=== PATIENT | female | born 1935 | race Caucasian/White ===

== ENCOUNTER → 2017-02-02 | Outpatient (CLI) | payer MEDICARE, MEDICAID ==
[~2017-02-02] MED LIST: ACULAR LS 5 ML5 ML OP; ALPHAG-P-0.1-15 OU; ALPHAG-P-0.1-5ML; ANORO IH; ANUSOL HC CREAM30 GM TP; ASPIRIN 81M81 MG/TA2 PO; ASPIRIN E.C. 8181 MG PO; B-121000 MCG PO; CEFTIN 250250 MG/TAB PO; COMBIRESP IH; CRANBERRY500 M3 PO; CYMBALTA 30MG30 MG PO; DOXYCYCLINE 10100 MG PO; ENALAPRIL20 MG PO; FLONASEALLERGY NS; HCTZ 25MG25 MG PO; HCTZ12.5TAB PO; HUMULIN 70/30 PE3 ML SC; HUMULIN 70/3100 U/ML SC; HUMULIN 70/3100 U/ML SQ; IMDUR 30MG30 MG/TAB PO; IMDUR30 MG PO; INSULIN 70/3100 U/ML IJ; INSULIN 70/3100 U/ML SQ; LANTUS100 U/ML; LANTUS100 U/ML SC; LASIX 20MG TABL20 MG PO; LEVEMIR100 U/ML SC; LEXAPRO20 MG PO; LISINOPRIL; LOPRESSOR 225 MG/TAB PO; MAGCITRATE PO; METOPROLOL50 MG PO; MULTAQ400 MG PO; NEXIUM PO; NOVOLIN R100 U/ML IJ; OCUFLOX 10 ML10 ML OP; OMEGA-31 SGL PO; OMNICEF 300MG300 MG PO; PAXIL40 MG PO; PERCOCET 325 MG1 TA2 PO; PLAVIX 75MG TAB75 MG PO; POTASSIUM; PRED FORTE 1 ML1 ML OP; PREVACID 30MG30 M1 PO; PREVACID SOLUTA30 M2 PO; PRILOSEC 20MG20 MG PO; PROAIR HFA0.09 MG/AC IH; REMERON 15M15 MG/TA1 PO; REQUIP 1MG T1 MG/TAB PO; SINEMET 25/101 UDTAB PO; TEARS NATURALE15 M1 OP; TOPROL XL 50MG50 MG PO; TYLENOL 500MG500 MG PO; UNABLE; VASOTEC20 MG PO; VICTOZA6 MG/ML SC; ZANTAC 150150 MG PO; ZANTAC 150MG T150 MG PO; [UNRECOGNIZED DRUG - OTHER]
== END ==
LOC: COL.VAS 12:25
DX: I08.0 Rheumatic disorders of both mitral and aortic valves (principal)

== ENCOUNTER 2017-02-22 11:51 | Inpatient (IN) | payer MEDICARE, MEDICAID ==
[~2017-02-22] VITALS: Ht 160 cm; Wt 90.9 kg
[~2017-02-22 11:51] MED LIST changes: -ALPHAG-P-0.1-15 OU; -ANORO IH; -CRANBERRY500 M3 PO; -FLONASEALLERGY NS; -LASIX 20MG TABL20 MG PO; -LEXAPRO20 MG PO; -LOPRESSOR 225 MG/TAB PO; -MULTAQ400 MG PO; -PROAIR HFA0.09 MG/AC IH; -SINEMET 25/101 UDTAB PO
[2017-02-22] MEDS ORDERED: SINEMET 25/101 UDTAB PO (12:21)
[2017-02-22] MEDS ORDERED: PROAIR HFA0.09 MG/AC IH (12:21)
[2017-02-22] MEDS ORDERED: LOPRESSOR 225 MG/TAB PO (12:23)
[2017-02-22] MEDS ORDERED: LEXAPRO20 MG PO (12:26)
[2017-02-22] MEDS ORDERED: ALPHAG-P-0.1-15 OU (12:27)
[2017-02-22] MEDS ORDERED: ANORO IH (12:28)
[2017-02-22] MEDS ORDERED: CRANBERRY500 M3 PO (12:28)
[2017-02-22 12:31] LABS: BASO # 0.1 (0.0-0.2); BASO % 0.7 % (0.0-2.0); EOS # 0.1 (0.0-0.7); EOS % 1.1 % (0-4.0); GRAN # 5.5 (1.4-6.5); GRAN % 68.7 % (42.2-75.2); LYMPH # 1.9 (1.2-3.4); MEAN CELL VOLUME 95 fl (80.0-100.0); MEAN CORPUSCULAR HGB CONC 32 g/dl (33.0-37.0); MEAN PLATELET VOLUME 10.5 fl (7.4-10.4); MONO # 0.5 (0.1-0.6); MONO % 6.1 % (1.7-9.3); PLATELET COUNT 184 K/mm3 (130-400); RED BLOOD COUNT 3.85 M/mm3 (4.10-5.30); REDCELL DISTRIBUTION WIDTH-CV 13.9 % (11.5-14.5); WHITE BLOOD COUNT 8.1 K/mm3 (4.8-10.8)
[2017-02-22 12:32] LABS: HEMATOCRIT 36.5 % (37.0-47.0); HEMOGLOBIN 11.6 g/dl (12.5-16.0); MEAN CORPUSCULAR HEMOGLOBIN 30 pg (27.0-31.0)
[2017-02-22 12:34] LABS: INR 1.2 (0.8-3.0)
[2017-02-22 12:37] LABS: PARTIAL THROMBOPLASTIN TIME 31.4 SECONDS (26.0-37.0)
[2017-02-22 12:45] LABS: ADJUSTED CALCIUM 9.2 mg/dL (8.4-10.2); ALANINE AMINOTRANSFERASE 17 U/L (9-52); ALBUMIN 3.9 gm/dL (3.5-5.0); ALKALINE PHOSPHATASE 103 U/L (50-136); ANION GAP 8 mmol/L (7-16); BLOOD UREA NITROGEN 14 mg/dL (7-17); CALCIUM 9.1 mg/dL (8.4-10.2); CARBON DIOXIDE 29 mmol/L (22-30); CHLORIDE 103 mmol/L (98-107); CREATININE, serum 0.77 mg/dL (0.52-1.25); GLUCOSE 111 mg/dL (74-106); POTASSIUM 3.9 mmol/L (3.4-5.0); SODIUM 140 mmol/L (137-145); TOTAL PROTEIN 7.3 gm/dL (6.4-8.2)
[2017-02-22 12:56] LABS: B-TYPE NATRIURETIC PEPTIDE 1970 pg/mL (0-450)
[2017-02-22 12:58] LABS: TROPONIN-I < 0.012 ng/mL (0.000-0.034)
[2017-02-22 13:40] LABS: PH 7 (5-8); SQUAMOUS EPITHELIAL 0-2 /hpf; URINE APPEARANCE Clear; URINE BACTERIA Rare /hpf; URINE BILIRUBIN Negative (NEGATIVE); URINE BLOOD 1+ (NEGATIVE); URINE COLOR Yellow; URINE GLUCOSE Negative (NEGATIVE); URINE KETONE Negative (NEGATIVE); URINE UROBILINOGEN Negative (NEGATIVE)
[2017-02-22 17:48] LABS: ARTERIAL BLD GAS O2 SATURATION 95.9 % (92-100); ARTERIAL BLD GAS TCO2 CT 28.7; ARTERIAL BLOOD GAS BASE EXCESS 2.7 (-2-2); ARTERIAL BLOOD GAS HCO3 27.4 meq/L (22-26); ARTERIAL BLOOD GAS PHT 7.43 C (7.35-7.45); ARTERIAL BLOOD GAS PO2 85.7 mmHg (80-100); ARTERIAL BLOOD GAS PO2T 85.7 (80-100); ARTERIAL BLOOD GAS pH 7.43 (7.35-7.45); ATS? YES; OXYHEMOGLOBIN 94.2 %
[2017-02-22 18:21] VITALS: BP 141/59; PULSE 69; TEMP 98.7
[2017-02-22 23:30] VITALS: BP 141/74; PULSE 85; TEMP 98.5
[2017-02-23] VITALS (7 sets, daily range): BP systolic 115–152; BP diastolic 38–75; PULSE 55–72; TEMP 97.5–98.9
[2017-02-23 10:12] LABS: CALCIUM 8.9 mg/dL (8.4-10.2); CREATININE, serum 0.81 mg/dL (0.52-1.25); MAGNESIUM 1.8 mg/dL (1.6-2.3); POTASSIUM 3.8 mmol/L (3.4-5.0)
[2017-02-24 07:46] VITALS: BP 165/64; PULSE 74; TEMP 98.3
[2017-02-24 10:00] LABS: BASO # 0.1 (0.0-0.2); BASO % 0.6 % (0.0-2.0); EOS # 0.2 (0.0-0.7); EOS % 2.8 % (0-4.0); GRAN # 5.8 (1.4-6.5); GRAN % 68.5 % (42.2-75.2); HEMOGLOBIN 12.8 g/dl (12.5-16.0); LYMPH # 1.8 (1.2-3.4); LYMPH % 21.6 % (20.0-51.0); MEAN CELL VOLUME 96 fl (80.0-100.0); MEAN CORPUSCULAR HEMOGLOBIN 30 pg (27.0-31.0); MEAN CORPUSCULAR HGB CONC 31 g/dl (33.0-37.0); MEAN PLATELET VOLUME 10.2 fl (7.4-10.4); MONO # 0.5 (0.1-0.6); MONO % 6.3 % (1.7-9.3); PLATELET COUNT 202 K/mm3 (130-400); RED BLOOD COUNT 4.27 M/mm3 (4.10-5.30); WHITE BLOOD COUNT 8.4 K/mm3 (4.8-10.8)
[2017-02-24 10:10] LABS: CALCIUM 9.2 mg/dL (8.4-10.2); CREATININE, serum 0.84 mg/dL (0.52-1.25); MAGNESIUM 1.7 mg/dL (1.6-2.3); POTASSIUM 3.6 mmol/L (3.4-5.0)
[2017-02-24 11:50] VITALS: BP 129/57; PULSE 73; TEMP 98.3
[2017-02-24 15:38] VITALS: BP 113/44; PULSE 71; TEMP 98.3
[2017-02-24 19:11] VITALS: BP 152/57; PULSE 62; TEMP 98.6
[2017-02-24 23:53] VITALS: BP 128/61; PULSE 65; TEMP 97.1
[2017-02-25 02:53] VITALS: BP 139/61; PULSE 85; TEMP 97.1
[2017-02-25 07:39] VITALS: BP 104/60; PULSE 107; TEMP 98.4
[2017-02-25 07:39] LABS: CALCIUM 9.2 mg/dL (8.4-10.2); CREATININE, serum 0.84 mg/dL (0.52-1.25); MAGNESIUM 1.8 mg/dL (1.6-2.3); POTASSIUM 3.7 mmol/L (3.4-5.0)
[2017-02-25 10:58] VITALS: BP 124/74; PULSE 72; TEMP 98.2
[2017-02-25 14:53] VITALS: BP 113/50; PULSE 59; TEMP 97.8
[2017-02-25 19:15] VITALS: BP 141/52; PULSE 75; TEMP 98.1
[2017-02-25 23:32] VITALS: BP 111/44; PULSE 62; TEMP 98.2
[2017-02-26 03:47] VITALS: BP 128/47; PULSE 128; TEMP 97.9
[2017-02-26 07:38] VITALS: BP 119/47; PULSE 64; TEMP 97.8
[2017-02-26 07:52] LABS: BILIRUBIN,TOTAL 0.8 mg/dL (0.0-1.0); CALCIUM 9.1 mg/dL (8.4-10.2); CREATININE, serum 0.91 mg/dL (0.52-1.25); MAGNESIUM 2.2 mg/dL (1.6-2.3); POTASSIUM 4.2 mmol/L (3.4-5.0); TOTAL PROTEIN 7.2 gm/dL (6.4-8.2)
[2017-02-26 08:23] LABS: BILIRUBIN,DIRECT 0.4 mg/dL (0.0-0.4)
[2017-02-26] MEDS ORDERED: MULTAQ400 MG PO (11:27)
[2017-02-26] MEDS ORDERED: LOPRESSOR 225 MG/TAB PO (11:28)
[2017-02-26 12:09] VITALS: BP 105/43; PULSE 62; TEMP 98.8
[2017-02-26] MEDS ORDERED: FLONASEALLERGY NS (14:57)
[2017-02-26] MEDS ORDERED: LASIX 20MG TABL20 MG PO (14:58)
== END 2017-02-26 16:14 | disposition home health service (06) | DRG 191 ==
LOC: COL.ER 11:51 → MEDICAL 15:30
PROVIDERS: Emergency Medicine; Internal Medicine; Internal Medicine Cardiovascular Disease
DX: J44.1 Chronic obstructive pulmonary disease with (acute) exacerbation (principal); N39.0 Urinary tract infection, site not specified; I47.1 Supraventricular tachycardia; F33.0 Major depressive disorder, recurrent, mild; I25.10 Atherosclerotic heart disease of native coronary artery without angina pectoris; Z95.5 Presence of coronary angioplasty implant and graft; G20 Parkinson's disease; I10 Essential (primary) hypertension; E11.42 Type 2 diabetes mellitus with diabetic polyneuropathy; J45.909 Unspecified asthma, uncomplicated; B96.89 Other specified bacterial agents as the cause of diseases classified elsewhere; I35.0 Nonrheumatic aortic (valve) stenosis; Z79.4 Long term (current) use of insulin
CPT/HCPCS: 90791-AI; 99223-AI; 99232-AI; 99233-AI; 99239; J0696; J1650; J1815; J1940; J2270; J3475; Q9967

== ENCOUNTER 2017-07-24 15:09 | Inpatient (IN) | payer MEDICARE, MEDICAID ==
[~2017-07-24] VITALS: Ht 160 cm; Wt 94.4 kg
[~2017-07-24 15:09] MED LIST changes: +ALPHAG-P-0.1-15 OU; +ANORO IH; +CRANBERRY500 M3 PO; +FLONASEALLERGY NS; +LASIX 20MG TABL20 MG PO; +LEXAPRO20 MG PO; +LOPRESSOR 225 MG/TAB PO; +MULTAQ400 MG PO; +PROAIR HFA0.09 MG/AC IH; +SINEMET 25/101 UDTAB PO
[2017-07-24 16:03] LABS: BASO % 0.4 % (0.0-2.0); EOS # 0.2 (0.0-0.7); EOS % 2.6 % (0-4.0); GRAN # 4.5 (1.4-6.5); GRAN % 58.3 % (42.2-75.2); LYMPH # 2.1 (1.2-3.4); LYMPH % 26.9 % (20.0-51.0); MEAN CELL VOLUME 93 fl (80.0-100.0); MEAN CORPUSCULAR HGB CONC 32 g/dl (33.0-37.0); MEAN PLATELET VOLUME 9.7 fl (7.4-10.4); MONO # 0.9 (0.1-0.6); MONO % 11.4 % (1.7-9.3); PLATELET COUNT 157 K/mm3 (130-400); RED BLOOD COUNT 3.76 M/mm3 (4.10-5.30)
[2017-07-24 16:12] LABS: HEMOGLOBIN 11.2 g/dl (12.5-16.0); MEAN CORPUSCULAR HEMOGLOBIN 30 pg (27.0-31.0)
[2017-07-24 16:16] LABS: ALANINE AMINOTRANSFERASE 21 U/L (9-52); ALBUMIN 3.8 gm/dL (3.5-5.0); ALKALINE PHOSPHATASE 121 U/L (50-136); ANION GAP 7 mmol/L (7-16); AST,SGOT 16 U/L (15-37); BILIRUBIN,TOTAL 0.9 mg/dL (0.0-1.0); BLOOD UREA NITROGEN 26 mg/dL (7-17); C-REACTIVE PROTEIN 7.2 mg/dL (0.0-0.9); CALCIUM 8.9 mg/dL (8.4-10.2); CARBON DIOXIDE 26 mmol/L (22-30); CHLORIDE 100 mmol/L (98-107); CREATININE, serum 1.05 mg/dL (0.52-1.25); GLUCOSE 282 mg/dL (74-106); SODIUM 133 mmol/L (137-145); TOTAL PROTEIN 7.1 gm/dL (6.4-8.2)
[2017-07-24 16:31] LABS: TROPONIN-I < 0.012 ng/mL (0.000-0.034)
[2017-07-24 16:40] LABS: ERYTHROCYTE SEDIMENTATION RATE 22 mm/hr (0-30)
[2017-07-24 17:44] LABS: COLLECTION METHOD CLEAN CATCH
[2017-07-24] MEDS ORDERED: ALDACTONE 25MG25 M1 PO (17:58)
[2017-07-24] MEDS ORDERED: MULTAQ400 MG PO (17:58)
[2017-07-24 18:08] LABS: MUCOUS Present /lpf; PH 5 (5-8); URINE APPEARANCE Hazy; URINE BACTERIA Many /hpf; URINE BILIRUBIN Negative (NEGATIVE); URINE BLOOD 1+ (NEGATIVE); URINE COLOR Yellow; URINE GLUCOSE 2+ (NEGATIVE); URINE KETONE Trace (NEGATIVE); URINE LEUKOCYTE ESTERASE 2+ (NEGATIVE); URINE NITRATE Positive (NEGATIVE); URINE PROTEIN(semi-quant) 2+ (NEGATIVE); URINE UROBILINOGEN >=4.0 mg/dL (NEGATIVE)
[2017-07-24 21:08] VITALS: BP 128/42; PULSE 62; TEMP 97.6
[2017-07-25 03:11] VITALS: BP 112/63; PULSE 67; TEMP 98
[2017-07-25 07:07] LABS: BASO % 0.5 % (0.0-2.0); EOS # 0.3 (0.0-0.7); EOS % 5.4 % (0-4.0); GRAN # 3.8 (1.4-6.5); GRAN % 60.8 % (42.2-75.2); LYMPH # 1.5 (1.2-3.4); LYMPH % 24.1 % (20.0-51.0); MEAN CELL VOLUME 96 fl (80.0-100.0); MEAN CORPUSCULAR HGB CONC 31 g/dl (33.0-37.0); MEAN PLATELET VOLUME 10.3 fl (7.4-10.4); MONO # 0.6 (0.1-0.6); MONO % 8.9 % (1.7-9.3); PLATELET COUNT 163 K/mm3 (130-400); RED BLOOD COUNT 3.48 M/mm3 (4.10-5.30); REDCELL DISTRIBUTION WIDTH-CV 14.2 % (11.5-14.5)
[2017-07-25 07:13] LABS: ALBUMIN 3.2 gm/dL (3.5-5.0); BILIRUBIN,TOTAL 0.6 mg/dL (0.0-1.0); CALCIUM 8.3 mg/dL (8.4-10.2); CREATININE, serum 1.02 mg/dL (0.52-1.25); POTASSIUM 3.6 mmol/L (3.4-5.0); TOTAL PROTEIN 6.4 gm/dL (6.4-8.2)
[2017-07-25 07:24] LABS: HEMATOCRIT 33.4 % (37.0-47.0); HEMOGLOBIN 10.4 g/dl (12.5-16.0); MEAN CORPUSCULAR HEMOGLOBIN 30 pg (27.0-31.0)
[2017-07-25 07:27] VITALS: BP 125/47; PULSE 66; TEMP 98.1
[2017-07-25 10:52] VITALS: BP 109/46; PULSE 66; TEMP 99.8
[2017-07-25 14:01] VITALS: BP 114/41; PULSE 64; TEMP 98
[2017-07-25 17:46] VITALS: BP 111/43; PULSE 62; TEMP 98.7
[2017-07-25 22:21] VITALS: BP 141/55; PULSE 65; TEMP 98.3
[2017-07-26 01:40] VITALS: BP 112/42; PULSE 59; TEMP 98.9
[2017-07-26 05:08] VITALS: BP 119/44; PULSE 66; TEMP 98.2
[2017-07-26 06:44] LABS: BASO % 0.6 % (0.0-2.0); EOS # 0.3 (0.0-0.7); EOS % 4.5 % (0-4.0); GRAN # 3.8 (1.4-6.5); GRAN % 59.7 % (42.2-75.2); LYMPH # 1.7 (1.2-3.4); LYMPH % 26.9 % (20.0-51.0); MEAN CELL VOLUME 96 fl (80.0-100.0); MEAN CORPUSCULAR HGB CONC 31 g/dl (33.0-37.0); MEAN PLATELET VOLUME 10.1 fl (7.4-10.4); MONO # 0.5 (0.1-0.6); MONO % 8.1 % (1.7-9.3); PLATELET COUNT 153 K/mm3 (130-400); RED BLOOD COUNT 3.41 M/mm3 (4.10-5.30)
[2017-07-26 06:54] LABS: HEMATOCRIT 32.7 % (37.0-47.0); HEMOGLOBIN 10.2 g/dl (12.5-16.0); MEAN CORPUSCULAR HEMOGLOBIN 30 pg (27.0-31.0)
[2017-07-26 06:59] LABS: CALCIUM 8.6 mg/dL (8.4-10.2); CREATININE, serum 1.03 mg/dL (0.52-1.25); POTASSIUM 4.4 mmol/L (3.4-5.0)
[2017-07-26 10:03] VITALS: BP 142/50; PULSE 63
[2017-07-26 13:36] VITALS: BP 120/42; PULSE 64; TEMP 97.9
[2017-07-26 17:37] VITALS: BP 144/4; BP 144/47; PULSE 67; TEMP 98.2
[2017-07-26 22:25] VITALS: BP 158/60; PULSE 65; TEMP 98
[2017-07-27 02:00] VITALS: BP 130/60; BP 145/52; PULSE 58; PULSE 96; TEMP 98.1; TEMP 98.8
[2017-07-27 05:13] VITALS: BP 148/45; PULSE 58; TEMP 98.1
[2017-07-27 07:07] LABS: BASO # 0.1 (0.0-0.2); BASO % 0.8 % (0.0-2.0); EOS # 0.3 (0.0-0.7); EOS % 4.5 % (0-4.0); GRAN # 3.7 (1.4-6.5); GRAN % 59.2 % (42.2-75.2); LYMPH # 1.8 (1.2-3.4); LYMPH % 28.1 % (20.0-51.0); MEAN CELL VOLUME 95 fl (80.0-100.0); MEAN CORPUSCULAR HGB CONC 32 g/dl (33.0-37.0); MEAN PLATELET VOLUME 10.4 fl (7.4-10.4); MONO # 0.4 (0.1-0.6); MONO % 7.1 % (1.7-9.3); PLATELET COUNT 158 K/mm3 (130-400); RED BLOOD COUNT 3.43 M/mm3 (4.10-5.30); REDCELL DISTRIBUTION WIDTH-CV 13.6 % (11.5-14.5)
[2017-07-27 07:26] LABS: HEMATOCRIT 32.7 % (37.0-47.0); HEMOGLOBIN 10.3 g/dl (12.5-16.0); MEAN CORPUSCULAR HEMOGLOBIN 30 pg (27.0-31.0)
[2017-07-27 07:46] LABS: CREATININE, serum 0.97 mg/dL (0.52-1.25); POTASSIUM 3.9 mmol/L (3.4-5.0)
[2017-07-27 07:58] VITALS: BP 126/56; PULSE 66; TEMP 98.3
[2017-07-27 09:49] VITALS: BP 151/42; PULSE 68; TEMP 97.9
[2017-07-27] MEDS ORDERED: NEOSPORIN1 OIN OP (13:32)
[2017-07-27] MEDS ORDERED: DOXYCYCLINE 10100 MG PO (13:32)
[2017-07-27 13:47] VITALS: BP 141/42; PULSE 70; TEMP 98.7
== END 2017-07-27 15:13 | disposition home health service (06) | DRG 603 ==
LOC: COL.ER 15:09 → EDBEDREQ 18:47 → SURG 18:47
PROVIDERS: Emergency Medicine; Nurse Practitioner Family; Physician Assistant
DX: L03.116 Cellulitis of left lower limb (principal); N39.0 Urinary tract infection, site not specified; L03.032 Cellulitis of left toe; I25.10 Atherosclerotic heart disease of native coronary artery without angina pectoris; Z95.5 Presence of coronary angioplasty implant and graft; G20 Parkinson's disease; I10 Essential (primary) hypertension; E11.42 Type 2 diabetes mellitus with diabetic polyneuropathy; J44.9 Chronic obstructive pulmonary disease, unspecified; J45.909 Unspecified asthma, uncomplicated; B96.89 Other specified bacterial agents as the cause of diseases classified elsewhere
CPT/HCPCS: 99222-AI; 99231-AI; 99239; J1170; J1650; J1815; J2543; J3370; J7030; J7050

== ENCOUNTER 2017-10-15 17:17 | Emergency (ER) | payer MEDICARE, MEDICAID ==
[~2017-10-15] VITALS: Ht 312.4 cm; Wt 88.2 kg
[~2017-10-15 17:17] MED LIST changes: +ALDACTONE 25MG25 M1 PO; +NEOSPORIN1 OIN OP
[2017-10-15 17:22] VITALS: TEMP 98.6
[2017-10-15 18:27] LABS: BASO # 0.1 (0.0-0.2); BASO % 0.9 % (0.0-2.0); EOS # 0.1 (0.0-0.7); EOS % 2.1 % (0-4.0); GRAN # 3.3 (1.4-6.5); GRAN % 50.7 % (42.2-75.2); LYMPH # 2.5 (1.2-3.4); LYMPH % 38.6 % (20.0-51.0); MEAN CELL VOLUME 93 fl (80.0-100.0); MEAN CORPUSCULAR HGB CONC 32 g/dl (33.0-37.0); MEAN PLATELET VOLUME 9.7 fl (7.4-10.4); MONO # 0.5 (0.1-0.6); MONO % 7.5 % (1.7-9.3); PLATELET COUNT 180 K/mm3 (130-400); RED BLOOD COUNT 3.76 M/mm3 (4.10-5.30); REDCELL DISTRIBUTION WIDTH-CV 13.7 % (11.5-14.5)
[2017-10-15 18:29] LABS: HEMOGLOBIN 11.2 g/dl (12.5-16.0); INR 1.2 (0.8-3.0); MEAN CORPUSCULAR HEMOGLOBIN 30 pg (27.0-31.0); PROTHROMBIN TIME 13.5 SECONDS (9.7-12.8)
[2017-10-15 18:33] LABS: CALCIUM 9.3 mg/dL (8.4-10.2); CREATININE, serum 1.15 mg/dL (0.52-1.25); POTASSIUM 4.1 mmol/L (3.4-5.0)
[2017-10-15 20:16] VITALS: BP 143/57; PULSE 67
== END 2017-10-15 20:17 | disposition home or self-care (01) ==
LOC: COL.ER 17:17
PROVIDERS: Emergency Medicine
DX: S99.922A Unspecified injury of left foot, initial encounter (principal); E11.9 Type 2 diabetes mellitus without complications; I25.10 Atherosclerotic heart disease of native coronary artery without angina pectoris; Z86.79 Personal history of other diseases of the circulatory system; Z79.4 Long term (current) use of insulin; X58.XXXA Exposure to other specified factors, initial encounter

== ENCOUNTER 2018-01-04 13:02 | Emergency (ER) | payer MEDICARE, MEDICAID ==
[~2018-01-04] VITALS: Ht 160 cm; Wt 85.9 kg
[2018-01-04 13:03] VITALS: TEMP 96.7
[2018-01-04] MEDS ORDERED: NOVOLIN R100 U/ML ×2 (13:15→13:16)
[2018-01-04 14:24] LABS: COLLECTION METHOD CLEAN CATCH
[2018-01-04 14:30] LABS: BASO % 0.5 % (0.0-2.0); EOS # 0.2 (0.0-0.7); EOS % 2.4 % (0-4.0); GRAN # 4.2 (1.4-6.5); GRAN % 62.7 % (42.2-75.2); HEMOGLOBIN 10.6 g/dl (12.5-16.0); LYMPH # 1.8 (1.2-3.4); LYMPH % 26.7 % (20.0-51.0); MEAN CELL VOLUME 94 fl (80.0-100.0); MEAN CORPUSCULAR HEMOGLOBIN 30 pg (27.0-31.0); MEAN CORPUSCULAR HGB CONC 32 g/dl (33.0-37.0); MEAN PLATELET VOLUME 9.6 fl (7.4-10.4); MONO # 0.5 (0.1-0.6); MONO % 7.4 % (1.7-9.3); PLATELET COUNT 177 K/mm3 (130-400); RED BLOOD COUNT 3.52 M/mm3 (4.10-5.30); REDCELL DISTRIBUTION WIDTH-CV 14.5 % (11.5-14.5)
[2018-01-04 14:31] LABS: HEMATOCRIT 32.9 % (37.0-47.0)
[2018-01-04 14:37] LABS: PH 5 (5-8); SQUAMOUS EPITHELIAL 0-2 /hpf; URINE APPEARANCE Clear; URINE BACTERIA None Seen /hpf; URINE BILIRUBIN Negative (NEGATIVE); URINE BLOOD Negative (NEGATIVE); URINE COLOR Yellow; URINE GLUCOSE Negative (NEGATIVE); URINE KETONE Trace (NEGATIVE); URINE LEUKOCYTE ESTERASE Negative (NEGATIVE); URINE NITRATE Negative (NEGATIVE); URINE PROTEIN(semi-quant) Negative (NEGATIVE); URINE RBC 0-2 /hpf; URINE UROBILINOGEN >=4.0 mg/dL (NEGATIVE)
[2018-01-04 14:41] LABS: ALANINE AMINOTRANSFERASE 16 U/L (9-52); ALKALINE PHOSPHATASE 131 U/L (50-136); ANION GAP 12 mmol/L (7-16); AST,SGOT 24 U/L (15-37); BILIRUBIN,TOTAL 0.6 mg/dL (0.0-1.0); BLOOD UREA NITROGEN 34 mg/dL (7-17); CARBON DIOXIDE 25 mmol/L (22-30); CHLORIDE 103 mmol/L (98-107); CREATININE, serum 1.21 mg/dL (0.52-1.25); GLUCOSE 118 mg/dL (74-106); POTASSIUM 3.9 mmol/L (3.4-5.0); SODIUM 139 mmol/L (137-145); TOTAL PROTEIN 7.5 gm/dL (6.4-8.2)
[2018-01-04 15:02] LABS: TROPONIN-I < 0.012 ng/mL (0.000-0.034)
[2018-01-04] MEDS ORDERED: VALIUM 5MG T5 MG/TAB PO (16:00)
[2018-01-04 16:09] VITALS: BP 110/62; PULSE 61
== END 2018-01-04 16:14 | disposition home or self-care (01) ==
LOC: COL.ER 13:02
PROVIDERS: Emergency Medicine
DX: F41.9 Anxiety disorder, unspecified (principal); I48.91 Unspecified atrial fibrillation; Z79.4 Long term (current) use of insulin; Z79.82 Long term (current) use of aspirin

== ENCOUNTER → 2018-03-18 | Outpatient (REF) ==
[~2018-03-18] MED LIST changes: +AMOXICILLIN 8751 TAB PO; +ASPIRIN 32325 MG/TAB PO; +ATIVAN 0.50.5 MG/TAB PO; +CORDARONE200 MG/TAB PO; +COREG 6.256.25 MG/TA PO; +DULCOLAX S10 MG/SUPP RC; +IPRATROPIUM BROM3 M1 IH; +LANTUS100 U/ML SQ; +LASIX 40MG TABL40 MG PO; +MIRALAX PA17 GM/Dose PO; +NOVLOG SQ; +NOVOLIN R100 U/ML SQ; +NOVOLOG 100U100 U/M1 SQ; +ROXICODONE 55 MG/TAB PO; +SENOKOT S 50 MG1 TAB PO; +VALIUM 5MG T5 MG/TAB PO
[2018-03-18 15:04] LABS: BASO # 0.1 (0.0-0.2); BASO % 0.7 % (0.0-2.0); EOS # 0.2 (0.0-0.7); EOS % 1.8 % (0-4.0); GRAN # 8.1 (1.4-6.5); GRAN % 74.7 % (42.2-75.2); HEMATOCRIT 33.7 % (37.0-47.0); HEMOGLOBIN 10.6 g/dl (12.5-16.0); INR 1.2 (0.8-3.0); LYMPH # 1.9 (1.2-3.4); LYMPH % 17.5 % (20.0-51.0); MEAN CELL VOLUME 97 fl (80.0-100.0); MEAN CORPUSCULAR HEMOGLOBIN 30 pg (27.0-31.0); MEAN CORPUSCULAR HGB CONC 32 g/dl (33.0-37.0); MEAN PLATELET VOLUME 10.1 fl (7.4-10.4); MONO # 0.5 (0.1-0.6); PLATELET COUNT 347 K/mm3 (130-400); RED BLOOD COUNT 3.49 M/mm3 (4.10-5.30); REDCELL DISTRIBUTION WIDTH-CV 19.6 % (11.5-14.5)
[2018-03-18 15:13] LABS: ALBUMIN 2.9 gm/dL (3.5-5.0); CALCIUM 8.5 mg/dL (8.4-10.2); CREATININE, serum 0.82 mg/dL (0.52-1.25); POTASSIUM 4.3 mmol/L (3.4-5.0); TOTAL PROTEIN 6.1 gm/dL (6.4-8.2)
== END ==
LOC: ZCOL.LAB 14:34
PROVIDERS: Family Medicine
DX: E11.65 Type 2 diabetes mellitus with hyperglycemia (principal); D51.8 Other vitamin B12 deficiency anemias

== ENCOUNTER → 2018-03-19 | Outpatient (REF) ==
[2018-03-19 10:28] LABS: BASO # 0.1 (0.0-0.2); BASO % 0.6 % (0.0-2.0); EOS # 0.3 (0.0-0.7); EOS % 3.4 % (0-4.0); GRAN % 70.2 % (42.2-75.2); LYMPH # 1.6 (1.2-3.4); LYMPH % 18.4 % (20.0-51.0); MEAN CELL VOLUME 99 fl (80.0-100.0); MEAN CORPUSCULAR HEMOGLOBIN 31 pg (27.0-31.0); MEAN CORPUSCULAR HGB CONC 31 g/dl (33.0-37.0); MEAN PLATELET VOLUME 9.9 fl (7.4-10.4); MONO # 0.6 (0.1-0.6); PLATELET COUNT 342 K/mm3 (130-400); RED BLOOD COUNT 3.28 M/mm3 (4.10-5.30); REDCELL DISTRIBUTION WIDTH-CV 19.9 % (11.5-14.5)
[2018-03-19 10:38] LABS: ALBUMIN 2.8 gm/dL (3.5-5.0); CALCIUM 8.5 mg/dL (8.4-10.2); CREATININE, serum 0.76 mg/dL (0.52-1.25); HEMATOCRIT 32.3 % (37.0-47.0); POTASSIUM 3.6 mmol/L (3.4-5.0); TOTAL PROTEIN 5.8 gm/dL (6.4-8.2)
== END ==
LOC: ZCOL.LAB 10:13
PROVIDERS: Family Medicine
DX: D51.8 Other vitamin B12 deficiency anemias (principal); I48.0 Paroxysmal atrial fibrillation; E11.65 Type 2 diabetes mellitus with hyperglycemia

== ENCOUNTER → 2018-04-04 | Outpatient (CLI) | payer MEDICARE, MEDICAID ==
[2018-04-04 16:58] LABS: ALBUMIN 3.1 gm/dL (3.5-5.0); BILIRUBIN,TOTAL 1.2 mg/dL (0.0-1.0); CALCIUM 8.8 mg/dL (8.4-10.2); CREATININE, serum 0.93 mg/dL (0.52-1.25); POTASSIUM 4.4 mmol/L (3.4-5.0); TOTAL PROTEIN 6.2 gm/dL (6.4-8.2)
== END ==
LOC: ZCOL.LAB 16:41
PROVIDERS: Family Medicine
DX: E11.40 Type 2 diabetes mellitus with diabetic neuropathy, unspecified (principal)

== ENCOUNTER → 2018-04-09 | Outpatient (REF) ==
[2018-04-09 07:15] LABS: COLLECTION METHOD CLEAN CATCH
[2018-04-09 07:16] LABS: MUCOUS Present /lpf; PH 7 (5-8); SQUAMOUS EPITHELIAL 0-2 /hpf; URINE APPEARANCE Hazy; URINE BACTERIA Occasional /hpf; URINE BILIRUBIN Negative (NEGATIVE); URINE BLOOD Negative (NEGATIVE); URINE COLOR Yellow; URINE GLUCOSE Negative (NEGATIVE); URINE KETONE Negative (NEGATIVE); URINE LEUKOCYTE ESTERASE 1+ (NEGATIVE); URINE NITRATE Negative (NEGATIVE); URINE PROTEIN(semi-quant) Negative (NEGATIVE); URINE RBC 0-2 /hpf; URINE UROBILINOGEN >=4.0 mg/dL (NEGATIVE); URINE WBC >50 /hpf
== END ==
LOC: ZCOL.LAB 06:50
PROVIDERS: Family Medicine
DX: N39.0 Urinary tract infection, site not specified (principal)

== ENCOUNTER → 2018-05-01 | Outpatient (CLI) | payer MEDICARE, MEDICAID ==
[2018-05-01 13:20] LABS: ALBUMIN 3.6 gm/dL (3.5-5.0); BILIRUBIN,TOTAL 0.6 mg/dL (0.0-1.0); CALCIUM 9.5 mg/dL (8.4-10.2); CREATININE, serum 1.1 mg/dL (0.52-1.25); POTASSIUM 5.1 mmol/L (3.4-5.0); TOTAL PROTEIN 6.9 gm/dL (6.4-8.2)
== END ==
LOC: ZCOL.LAB 13:05
PROVIDERS: Family Medicine
DX: E11.40 Type 2 diabetes mellitus with diabetic neuropathy, unspecified (principal); Z79.82 Long term (current) use of aspirin; Z79.4 Long term (current) use of insulin

== ENCOUNTER → 2018-05-03 | Outpatient (CLI) | payer MEDICARE, MEDICAID | LOC: ZCOL.LAB 20:25 | DX: N39.0 Urinary tract infection, site not specified (principal) ==

== ENCOUNTER 2018-05-23 09:45 | Emergency (ER) | payer MEDICARE, MEDICAID ==
[~2018-05-23] VITALS: Ht 160 cm; Wt 81.8 kg
[2018-05-23 09:49] VITALS: BP 170/64; TEMP 97.3
[2018-05-23 10:11] LABS: BASO # 0.1 (0.0-0.2); BASO % 0.7 % (0.0-2.0); EOS # 0.1 (0.0-0.7); EOS % 1.5 % (0-4.0); GRAN # 3.8 (1.4-6.5); HEMATOCRIT 37.8 % (37.0-47.0); HEMOGLOBIN 12.5 g/dl (12.5-16.0); LYMPH # 2.7 (1.2-3.4); LYMPH % 36.6 % (20.0-51.0); MEAN CELL VOLUME 95 fl (80.0-100.0); MEAN CORPUSCULAR HEMOGLOBIN 31 pg (27.0-31.0); MEAN CORPUSCULAR HGB CONC 33 g/dl (33.0-37.0); MEAN PLATELET VOLUME 9.5 fl (7.4-10.4); MONO # 0.7 (0.1-0.6); MONO % 9.1 % (1.7-9.3); PLATELET COUNT 182 K/mm3 (130-400); RED BLOOD COUNT 3.98 M/mm3 (4.10-5.30); REDCELL DISTRIBUTION WIDTH-CV 12.7 % (11.5-14.5)
[2018-05-23 10:26] LABS: ALANINE AMINOTRANSFERASE 16 U/L (9-52); ALBUMIN 4.2 gm/dL (3.5-5.0); ALKALINE PHOSPHATASE 156 U/L (50-136); ANION GAP 10 mmol/L (7-16); AST,SGOT 20 U/L (15-37); BILIRUBIN,TOTAL 0.9 mg/dL (0.0-1.0); BLOOD UREA NITROGEN 31 mg/dL (7-17); C-REACTIVE PROTEIN 0.8 mg/dL (0.0-0.9); CALCIUM 9.6 mg/dL (8.4-10.2); CARBON DIOXIDE 26 mmol/L (22-30); CHLORIDE 101 mmol/L (98-107); GLUCOSE 273 mg/dL (74-106); LIPASE 19 U/L (23-300); POTASSIUM 4.2 mmol/L (3.4-5.0); SODIUM 137 mmol/L (137-145)
[2018-05-23 10:36] LABS: TROPONIN-I < 0.012 ng/mL (0.000-0.034)
[2018-05-23 10:57] LABS: MUCOUS Present /lpf; PH 5 (5-8); SQUAMOUS EPITHELIAL 0-2 /hpf; URINE APPEARANCE Hazy; URINE BACTERIA Rare /hpf; URINE BILIRUBIN Negative (NEGATIVE); URINE BLOOD 2+ (NEGATIVE); URINE COLOR Amber; URINE GLUCOSE 1+ (NEGATIVE); URINE KETONE Negative (NEGATIVE); URINE LEUKOCYTE ESTERASE 2+ (NEGATIVE); URINE NITRATE Positive (NEGATIVE); URINE PROTEIN(semi-quant) 2+ (NEGATIVE)
[2018-05-23 11:31] LABS: COLLECTION METHOD CATHETER
[2018-05-23] MEDS ORDERED: CEFTIN500 MG PO (13:07)
[2018-05-23 13:40] VITALS: PULSE 74
== END 2018-05-23 13:40 | disposition home or self-care (01) ==
LOC: COL.ER 09:45
PROVIDERS: Physician Assistant
DX: N39.0 Urinary tract infection, site not specified (principal); R06.00 Dyspnea, unspecified; E11.9 Type 2 diabetes mellitus without complications; I10 Essential (primary) hypertension; J44.9 Chronic obstructive pulmonary disease, unspecified; F32.9 Major depressive disorder, single episode, unspecified; E78.5 Hyperlipidemia, unspecified; K21.9 Gastro-esophageal reflux disease without esophagitis; G20 Parkinson's disease; Z79.82 Long term (current) use of aspirin; Z79.4 Long term (current) use of insulin; Z79.891 Long term (current) use of opiate analgesic; Z86.74 Personal history of sudden cardiac arrest; Z87.440 Personal history of urinary (tract) infections; Z90.49 Acquired absence of other specified parts of digestive tract; Z90.710 Acquired absence of both cervix and uterus
CPT/HCPCS: A4216; J0696

== ENCOUNTER 2018-06-27 21:51 | Emergency (ER) | payer MEDICARE, MEDICAID ==
[~2018-06-27] VITALS: Ht 160 cm; Wt 75.9 kg
[~2018-06-27 21:51] MED LIST changes: +CEFTIN500 MG PO; +PRIL40 PO; -PRILOSEC 20MG20 MG PO
[2018-06-27 21:56] VITALS: TEMP 97.4
[2018-06-27] MEDS ORDERED: COREG12.5 MG PO (22:18)
[2018-06-27] MEDS ORDERED: LANTUS SOLOS100 U/ML SQ (22:19)
[2018-06-27] MEDS ORDERED: NOVOLIN N100 U/ML SQ (22:19)
[2018-06-27] MEDS ORDERED: ASPIRIN 81M81 MG/TA2 PO (22:20)
[2018-06-27] MEDS ORDERED: CORDARONE200 MG/TAB PO (22:21)
[2018-06-27] MEDS ORDERED: B-12 100 MCG PO (22:22)
[2018-06-27 22:26] LABS: BASO % 0.5 % (0.0-2.0); EOS # 0.1 (0.0-0.7); EOS % 1.3 % (0-4.0); GRAN # 4.3 (1.4-6.5); GRAN % 55.4 % (42.2-75.2); HEMOGLOBIN 11.7 g/dl (12.5-16.0); LYMPH # 2.7 (1.2-3.4); LYMPH % 35.5 % (20.0-51.0); MEAN CELL VOLUME 95 fl (80.0-100.0); MEAN CORPUSCULAR HEMOGLOBIN 30 pg (27.0-31.0); MEAN CORPUSCULAR HGB CONC 32 g/dl (33.0-37.0); MEAN PLATELET VOLUME 9.8 fl (7.4-10.4); MONO # 0.5 (0.1-0.6); PLATELET COUNT 169 K/mm3 (130-400); RED BLOOD COUNT 3.86 M/mm3 (4.10-5.30); REDCELL DISTRIBUTION WIDTH-CV 13.3 % (11.5-14.5)
[2018-06-27 22:35] LABS: ALBUMIN 3.9 gm/dL (3.5-5.0); BILIRUBIN,TOTAL 0.7 mg/dL (0.0-1.0); CALCIUM 9.4 mg/dL (8.4-10.2); CREATININE, serum 0.84 mg/dL (0.52-1.25); POTASSIUM 3.7 mmol/L (3.4-5.0); TOTAL PROTEIN 7.3 gm/dL (6.4-8.2)
[2018-06-27] MEDS ORDERED: [UNRECOGNIZED DRUG - OTHER] PO (22:36)
[2018-06-27 22:40] LABS: HEMATOCRIT 36.5 % (37.0-47.0)
[2018-06-27 22:47] LABS: TROPONIN-I 0.012 ng/mL (0.000-0.034)
[2018-06-27] MEDS ORDERED: DULCOLAX TAB5 MG PO (22:51)
[2018-06-28 00:13] VITALS: BP 144/49; PULSE 60
== END 2018-06-28 00:14 | disposition home or self-care (01) ==
LOC: COL.ER 21:51
PROVIDERS: Emergency Medicine
DX: R00.2 Palpitations (principal); R06.00 Dyspnea, unspecified; E78.5 Hyperlipidemia, unspecified; I10 Essential (primary) hypertension; E11.9 Type 2 diabetes mellitus without complications; Z79.4 Long term (current) use of insulin; Z79.82 Long term (current) use of aspirin

== ENCOUNTER 2018-08-06 10:47 | Day surgery (SDC) | payer MEDICARE, MEDICAID ==
[~2018-08-06] VITALS: Ht 160 cm; Wt 70.0 kg
[~2018-08-06 10:47] MED LIST changes: +B-12 100 MCG PO; +COREG12.5 MG PO; +DULCOLAX TAB5 MG PO; +LANTUS SOLOS100 U/ML SQ; +NOVOLIN N100 U/ML SQ; +[UNRECOGNIZED DRUG - OTHER] PO
[2018-08-06] MEDS ORDERED: ALDACTONE 25MG25 M1 PO (11:46)
[2018-08-06] MEDS ORDERED: TOPROL XL 25MG25 MG PO (11:47)
[2018-08-06] MEDS ORDERED: PROZAC 20MG20 MG PO (11:49)
[2018-08-06] MEDS ORDERED: ATIVAN 0.50.5 MG/TAB PO (11:52)
[2018-08-06] MEDS ORDERED: ZOFRAN ODT4 MG PO (11:54)
[2018-08-06] MEDS ORDERED: FLONASEALLERGY NS (11:56)
[2018-08-06] MEDS ORDERED: VENTOLIN0.09 MG IH (11:57)
[2018-08-06] MEDS ORDERED: INSULIN 70/3100 U/ML SQ (11:59)
[2018-08-06 12:10] VITALS: BP 143/75; PULSE 75; TEMP 97.6
[2018-08-06] MEDS ORDERED: ZANTAC 150MG T150 MG PO (12:10)
[2018-08-06 12:25] VITALS: BP 106/60; PULSE 60; TEMP 97.2
--- NOTE | 2018-08-06 13:06 | NUR ---
PATIENT RETURNS TO [facility]AY [facility] VIA CART FROM OR. TRANSFER TO CHAIR WITH MINIMAL ASSISTANCE. POST VS STARTED. ATE MUFFIN AND DRANK JUICE. ALERT AND ORIENTED X 3. CALL LIGHT WITHIN REACH. WILL CONTINUE TO MONITOR.
--- NOTE | 2018-08-06 13:08 | NUR ---
PATIENT TOLERATED DIET WELL. DISCHARGE ORDERS GIVEN, VERBALIZED UNDERSTANDING. IV DC, WNL. PATIENT DISCHARGED TO HOME VIA WHEELCHAIR WITH MICROSCOPIST.
== END 2018-08-06 12:55 | disposition home or self-care (01) ==
LOC: SDCO 10:47
DX: K29.50 Unspecified chronic gastritis without bleeding (principal); E11.40 Type 2 diabetes mellitus with diabetic neuropathy, unspecified; Z79.4 Long term (current) use of insulin; I11.0 Hypertensive heart disease with heart failure; I50.9 Heart failure, unspecified; G20 Parkinson's disease; J44.9 Chronic obstructive pulmonary disease, unspecified; K21.9 Gastro-esophageal reflux disease without esophagitis; F32.9 Major depressive disorder, single episode, unspecified; E78.5 Hyperlipidemia, unspecified; I25.10 Atherosclerotic heart disease of native coronary artery without angina pectoris; I35.0 Nonrheumatic aortic (valve) stenosis; M85.80 Other specified disorders of bone density and structure, unspecified site; I48.91 Unspecified atrial fibrillation; H40.9 Unspecified glaucoma; Z79.899 Other long term (current) drug therapy; F41.9 Anxiety disorder, unspecified
CPT/HCPCS: J2704; J7030

== ENCOUNTER 2018-08-19 12:15 | Emergency (ER) | payer MEDICARE, MEDICAID ==
[~2018-08-19] VITALS: Ht 157.5 cm; Wt 72.7 kg
[~2018-08-19 12:15] MED LIST changes: +PROZAC 20MG20 MG PO; +TOPROL XL 25MG25 MG PO; +VENTOLIN0.09 MG IH; +ZOFRAN ODT4 MG PO
[2018-08-19 12:16] VITALS: TEMP 98.3
[2018-08-19 12:47] LABS: BASO % 0.4 % (0.0-2.0); EOS # 0.1 (0.0-0.7); GRAN # 4.7 (1.4-6.5); HEMOGLOBIN 11.2 g/dl (12.5-16.0); LYMPH # 1.6 (1.2-3.4); LYMPH % 22.9 % (20.0-51.0); MEAN CELL VOLUME 98 fl (80.0-100.0); MEAN CORPUSCULAR HEMOGLOBIN 31 pg (27.0-31.0); MEAN CORPUSCULAR HGB CONC 32 g/dl (33.0-37.0); MEAN PLATELET VOLUME 10.2 fl (7.4-10.4); MONO # 0.5 (0.1-0.6); MONO % 7.6 % (1.7-9.3); PLATELET COUNT 193 K/mm3 (130-400); REDCELL DISTRIBUTION WIDTH-CV 14.4 % (11.5-14.5)
[2018-08-19 13:00] LABS: HEMATOCRIT 35.1 % (37.0-47.0)
[2018-08-19 13:02] LABS: ALBUMIN 3.7 gm/dL (3.5-5.0); BILIRUBIN,TOTAL 1.6 mg/dL (0.0-1.0); C-REACTIVE PROTEIN 1.8 mg/dL (0.0-0.9); CALCIUM 8.8 mg/dL (8.4-10.2); CREATININE, serum 0.94 mg/dL (0.52-1.25); POTASSIUM 3.8 mmol/L (3.4-5.0)
[2018-08-19 14:37] LABS: COLLECTION METHOD CLEAN CATCH
[2018-08-19 14:50] LABS: MUCOUS Present /lpf; PH 6 (5-8); URINE APPEARANCE Hazy; URINE BACTERIA Rare /hpf; URINE BILIRUBIN Negative (NEGATIVE); URINE BLOOD 1+ (NEGATIVE); URINE COLOR Yellow; URINE GLUCOSE Negative (NEGATIVE); URINE KETONE Trace (NEGATIVE); URINE LEUKOCYTE ESTERASE Negative (NEGATIVE); URINE NITRATE Negative (NEGATIVE); URINE PROTEIN(semi-quant) 2+ (NEGATIVE); URINE UROBILINOGEN >=4.0 mg/dL (NEGATIVE)
[2018-08-19] MEDS ORDERED: GICOCKTAIL PO (15:09)
[2018-08-19] MEDS ORDERED: LASIX 40MG TABL40 MG PO (15:09)
[2018-08-19 15:52] VITALS: BP 110/85; PULSE 85
== END 2018-08-19 15:50 | disposition home or self-care (01) ==
LOC: COL.ER 12:15
PROVIDERS: Emergency Medicine
DX: J81.1 Chronic pulmonary edema (principal); R10.13 Epigastric pain; J44.9 Chronic obstructive pulmonary disease, unspecified; Z79.82 Long term (current) use of aspirin
CPT/HCPCS: C9113

== ENCOUNTER → 2018-12-13 | Outpatient (CLI) | payer MEDICARE, MEDICAID ==
[~2018-12-13] MED LIST changes: +GICOCKTAIL PO
== END ==
LOC: COL.RAD 09:23
DX: N30.21 Other chronic cystitis with hematuria (principal)

== ENCOUNTER → 2019-03-17 | Outpatient (CLI) | payer MEDICARE, MEDICAID | LOC: COL.RAD 13:16 | DX: M79.89 Other specified soft tissue disorders (principal) ==

== ENCOUNTER → 2019-05-13 | Outpatient (CLI) | payer MEDICARE, MEDICAID | LOC: MC.RAD 05-12 13:30 | DX: N63.20 Unspecified lump in the left breast, unspecified quadrant (principal) | CPT/HCPCS: G0279 ==

== ENCOUNTER → 2019-05-27 | Outpatient (CLI) | payer MEDICARE, MEDICAID | LOC: MC.RAD 09:41 | DX: N63.20 Unspecified lump in the left breast, unspecified quadrant (principal); Z98.82 Breast implant status ==

== ENCOUNTER 2019-06-24 06:47 | Day surgery (SDC) | payer MEDICARE, MEDICAID ==
[2019-06-24] VITALS (8 sets, daily range): BP systolic 127–148; BP diastolic 42–56; PULSE 72–87; TEMP 98.1–101
[~2019-06-24] VITALS: Ht 160 cm; Wt 82.4 kg
[2019-06-24] MEDS ORDERED: TRESIBA FL100 UNIT/1 SQ (08:47)
[2019-06-24] MEDS ORDERED: XANAX 0.5MG0.5 MG PO (08:50)
[2019-06-24] MEDS ORDERED: ASPIRIN E.C. 8181 MG PO (08:53)
[2019-06-24] MEDS ORDERED: B-121000 MCG PO (08:53)
--- NOTE | 2019-06-24 09:10 | NUR ---
PATIENT STATED SHE IS GETTING EVEN MORE NERVOUS. RECEIVED VALIUM 5MG ORDERED BY OCHOA HEDRICK FRIEND ANGELINA INTO TALK WITH PATIENT PATIENT CURRENTLY WATCHING TV
--- NOTE | 2019-06-24 09:30 | NUR ---
UP TO BEDSIDE COMMODE WITH 2 ASSIST AND VOIDED. PERICARE AND ASSISTED BACK TO BED
--- NOTE | 2019-06-24 09:45 | NUR ---
PATIENT CURRENTLY SLEEPING
--- NOTE | 2019-06-24 10:38 | NUR ---
PATIENT TAKEN TO RADIOLOGY
--- NOTE | 2019-06-24 10:57 | NUR ---
DOPPLER STUDY ORDERED
[2019-06-24] MEDS ORDERED: NORCO 325 MG-51 TAB PO (10:58)
--- NOTE | 2019-06-24 11:36 | NUR ---
Initial visit; Patient thanked Conditioning Yard Supervisor for offering comfort and prayer prior to her surgical procedure.
--- NOTE | 2019-06-24 12:00 | NUR ---
INCONTINENT OF URINE. PATIENT TRANSFERED TO BEDSIDE COMMODE WITH 2 ASSIST. INCONTINENT ON FLOOR AND HAD A BOWEL MOVEMENT. GOOD PERICARE WITH NEW GOWN PATIENT ASSISTED BACK TO BED. SWELLING ON LEFT LEG DOWN AND RIGHT LEG HAS SCANT DECREASE IN SWELLING.
[2019-06-24 16:24] LABS: BASO # 0.1 (0.0-0.2); BASO % 0.7 % (0.0-2.0); EOS # 0.1 (0.0-0.7); EOS % 0.7 % (0-4.0); GRAN # 5.9 (1.4-6.5); GRAN % 77.1 % (42.2-75.2); HEMATOCRIT 36.8 % (37.0-47.0); HEMOGLOBIN 11.7 g/dl (12.5-16.0); LYMPH # 1.2 (1.2-3.4); LYMPH % 15.3 % (20.0-51.0); MEAN CELL VOLUME 96 fl (80.0-100.0); MEAN CORPUSCULAR HEMOGLOBIN 30 pg (27.0-31.0); MEAN CORPUSCULAR HGB CONC 32 g/dl (33.0-37.0); MEAN PLATELET VOLUME 9.9 fl (7.4-10.4); MONO # 0.5 (0.1-0.6); MONO % 5.9 % (1.7-9.3); PLATELET COUNT 172 K/mm3 (130-400); RED BLOOD COUNT 3.85 M/mm3 (4.10-5.30); REDCELL DISTRIBUTION WIDTH-CV 12.8 % (11.5-14.5)
[2019-06-24 16:34] LABS: BILIRUBIN,TOTAL 0.8 mg/dL (0.0-1.0); CALCIUM 8.9 mg/dL (8.4-10.2); CREATININE, serum 0.91 (0.52-1.25); MAGNESIUM 1.5 mg/dL (1.6-2.3); POTASSIUM 4.9 mmol/L (3.4-5.0); TOTAL PROTEIN 7.4 gm/dL (6.4-8.2)
--- NOTE | 2019-06-24 16:45 | NUR ---
Patient to room 342 from PACU on bed. Patient alert and drowsy, but awake. Oriented patient to room, call light and bed. VSS 2L NC O2. VS monitored Post OP. IV CDI. Incision site LF chest, CDI edges well approximated. CHRISTINA drain LF chest CDI. BLE edema, no pitting. SCD BLE. No further needs expressed from patient. Call light within reach. Bed alarm on.
--- NOTE | 2019-06-24 19:31 | NUR ---
Patient sitting up in bed eatting dinner, friend at the bedside. A&O and awake. Denies pain and discomfort. VSS. Post OP VS complete. 1L NC O2, no reported SOB. IV CDI. Incision lf chest CDI edges well approximated. CHRISTINA drain left chest bulb suction, CDI bloody output. No further needs expressed from patient. Call light within reach. Patient instructed to call nursing staff for assistance with ambulation. Bed alarm on
--- NOTE | 2019-06-24 21:15 | NUR ---
Pt had mild temp of 101. BP of 129/43, certified indoor environmentalist dr. huffman notified, prn tylenol 650 q6prn ordered.
--- NOTE | 2019-06-24 21:55 | NUR ---
Pt sleeping in bed comfortably. Ate 100% of dinner. Call light within reach, will continue to monitor
--- NOTE | 2019-06-25 00:35 | NUR ---
Pt incontinent of urine. Linens changed and patient was cleaned up. Ambulated to bathroom with gait belt and walker x2 assist. Had small, soft BM. Barrier cream and mepilex applied to bottom as 2 open sores were seen. Leflt buttocks had a 3cm sore and right had a 2cm sore.
[2019-06-25 04:55] VITALS: BP 149/52; PULSE 74; TEMP 97.8
[2019-06-25 07:34] VITALS: BP 179/55; PULSE 78; TEMP 97.7
--- NOTE | 2019-06-25 08:40 | NUR ---
Patient alert and oriented, answers questions appropriately. See assessment. Left breast incision with edges well approximated, edges intact, no redness or drainage noted. Bruising noted around incision site. CHRISTINA drain in place, compressed and draining small amount of bloody drainage. Left arm precautions reviewed with patient. No c/o pain or discomfort.
[2019-06-25 11:33] VITALS: BP 138/43; PULSE 75; TEMP 98.9
[2019-06-25] MEDS ORDERED: PERCOCET 325 MG1 TA2 PO (12:19)
[2019-06-25 15:47] VITALS: BP 130/44; PULSE 76; TEMP 98.5
--- NOTE | 2019-06-25 20:00 | NUR ---
PATIENT RESTING IN BED DURING SHIFT CHANGE REPORT FROM DAY SHIFT NURSE. REPORTS SOME DISCOMFORT, REFUSED OFFER OF PAIN MED WHEN OFFERED.
[2019-06-25 20:01] VITALS: BP 139/50; PULSE 76; TEMP 99.3
[2019-06-26 00:13] VITALS: BP 141/50; PULSE 76; TEMP 98.1
--- NOTE | 2019-06-26 02:57 | NUR ---
PATIENT RESTING QUIETLY IN BED WITH EYES CLOSED, DOES NOT AWAKEN WHEN DOOR TO ROOM OPENED. BREATHING EVEN AND NONLABORED.
[2019-06-26 04:20] VITALS: BP 132/44; PULSE 61; TEMP 98.4
--- NOTE | 2019-06-26 06:33 | NUR ---
PATIENT COOPERATIVE, ASKING QUESTIONS, DENIES ANY COMPLAINTS AT THIS TIME.
--- NOTE | 2019-06-26 07:15 | NUR ---
Patient resting in bed during shift change report given to day shift nurse. Complains of chronic BLE pain, refused offer of pain meds at this time.
[2019-06-26 07:29] VITALS: BP 156/54; PULSE 71; TEMP 98.3
[2019-06-26 07:51] LABS: BASO % 0.5 % (0.0-2.0); EOS # 0.2 (0.0-0.7); EOS % 2.8 % (0-4.0); GRAN % 50.1 % (42.2-75.2); HEMOGLOBIN 11.1 g/dl (12.5-16.0); LYMPH # 2.8 (1.2-3.4); LYMPH % 35.9 % (20.0-51.0); MEAN CELL VOLUME 96 fl (80.0-100.0); MEAN CORPUSCULAR HEMOGLOBIN 31 pg (27.0-31.0); MEAN CORPUSCULAR HGB CONC 32 g/dl (33.0-37.0); MEAN PLATELET VOLUME 10.2 fl (7.4-10.4); MONO # 0.8 (0.1-0.6); MONO % 10.4 % (1.7-9.3); PLATELET COUNT 174 K/mm3 (130-400); RED BLOOD COUNT 3.62 M/mm3 (4.10-5.30); REDCELL DISTRIBUTION WIDTH-CV 12.9 % (11.5-14.5)
[2019-06-26 07:55] LABS: HEMATOCRIT 34.9 % (37.0-47.0)
[2019-06-26 08:00] LABS: CALCIUM 8.8 mg/dL (8.4-10.2); CREATININE, serum 1.02 (0.52-1.25); POTASSIUM 4.3 mmol/L (3.4-5.0)
--- NOTE | 2019-06-26 08:20 | NUR ---
Patient in bed resting. Alert and oritented x3. Shift assessment complete. Incision to left chest with edges well approximated. CHRISTINA drain with bloody drainage present. Denies pain at this time. Patient incontinent of urine, pericare provided, assited patient to restroom, x1 assist with walker and gait belt. Patient back to bed. Denies further needs at this time.
--- NOTE | 2019-06-26 09:35 | NUR ---
SW met with the patient to discuss discharge plan. The patient lives alone in [place]. She states that she has good friend support in [facility]. She reports needing some assistance with bathing and has a cane, rolaider, and walker. She states that she has private duty services from [facility] and that they assist her with bathing and light housekeeping. The patient's PCP is Dr. Kristi Daugherty and she receives her medications by delivery from [facility]. She reports no difficulties obtaining her meds. The patient's advanced directives are in EMR and her DPOA-HC is her son, Sascha Mccord (ph#[phone]). She states that he lives in [place] and hardly ever answers his phone. She states that she has been wanting to designate her friend, Ita Marquez (ph#[phone], as her DPOA-HC. She was interested in obtaining a new DPOA-HC form. SW provided. The patient plans to return home upon discharge with her friends providing transportation. No additional needs at this time.
--- NOTE | 2019-06-26 11:25 | NUR ---
Reported off to Charleen CUSTOMER SALES DISTRIBUTOR
--- NOTE | 2019-06-26 11:43 | NUR ---
First visit from the bus and trolley inspecting dispatcher. No needs right now.
[2019-06-26 11:45] VITALS: BP 144/50; PULSE 71; TEMP 99.1
--- NOTE | 2019-06-26 14:40 | NUR ---
Discharge teaching completed. Patient and caregiver present when discharge teaching given, follow up appointment discussed, importance of keeping appointment and drain removal. Educated patient and caregiver on keeping drain site clean and dry, and to cover when patient bathes. Patient given script for pain medication. INT removed from right wrist, catheter intact, hemostasis achieved. Patient confirms that all personal belongings have been gathered, patient and caregiver escorted to entrance, where patient entered private vehicle.
== END 2019-06-26 14:40 | disposition home or self-care (01) ==
LOC: SDCO 06:47 → SURG 17:06 → SDCO 06-26 14:40
PROVIDERS: Surgery
DX: C50.112 Malignant neoplasm of central portion of left female breast (principal); Z17.1 Estrogen receptor negative status [ER-]; E11.9 Type 2 diabetes mellitus without complications; Z79.4 Long term (current) use of insulin; J44.9 Chronic obstructive pulmonary disease, unspecified; M85.80 Other specified disorders of bone density and structure, unspecified site; G20 Parkinson's disease; H40.9 Unspecified glaucoma; I25.10 Atherosclerotic heart disease of native coronary artery without angina pectoris; I11.0 Hypertensive heart disease with heart failure; I50.9 Heart failure, unspecified; Z79.899 Other long term (current) drug therapy; Z79.82 Long term (current) use of aspirin; K21.9 Gastro-esophageal reflux disease without esophagitis; Z88.8 Allergy status to other drugs, medicaments and biological substances; Z91.041 Radiographic dye allergy status; G47.33 Obstructive sleep apnea (adult) (pediatric); I35.0 Nonrheumatic aortic (valve) stenosis
CPT/HCPCS: OP; A9284; A9541; J0690; J1815; J2405; J2704; J2795; J3010; J7120

== ENCOUNTER 2019-07-27 20:51 | Emergency (ER) | payer MEDICARE, MEDICAID ==
[~2019-07-27] VITALS: Ht 160 cm; Wt 77.3 kg
[~2019-07-27 20:51] MED LIST changes: +NORCO 325 MG-51 TAB PO; +TRESIBA FL100 UNIT/1 SQ; +XANAX 0.5MG0.5 MG PO
[2019-07-27 21:22] LABS: BASO % 0.5 % (0.0-2.0); EOS # 0.2 (0.0-0.7); EOS % 2.5 % (0-4.0); GRAN # 4.7 (1.4-6.5); GRAN % 58.2 % (42.2-75.2); HEMATOCRIT 38.4 % (37.0-47.0); HEMOGLOBIN 12.1 g/dl (12.5-16.0); LYMPH # 2.5 (1.2-3.4); LYMPH % 30.6 % (20.0-51.0); MEAN CELL VOLUME 96 fl (80.0-100.0); MEAN CORPUSCULAR HEMOGLOBIN 30 pg (27.0-31.0); MEAN CORPUSCULAR HGB CONC 32 g/dl (33.0-37.0); MEAN PLATELET VOLUME 9.9 fl (7.4-10.4); MONO # 0.7 (0.1-0.6); MONO % 8.1 % (1.7-9.3); PLATELET COUNT 164 K/mm3 (130-400); RED BLOOD COUNT 4.02 M/mm3 (4.10-5.30)
[2019-07-27 21:33] LABS: ALANINE AMINOTRANSFERASE < 6 U/L (9-52); ALBUMIN 4.1 gm/dL (3.5-5.0); ALKALINE PHOSPHATASE 142 U/L (50-136); ANION GAP 10 mmol/L (7-16); AST,SGOT 18 U/L (15-37); BILIRUBIN,TOTAL 0.6 mg/dL (0.0-1.0); BLOOD UREA NITROGEN 21 mg/dL (7-17); C-REACTIVE PROTEIN 1.8 mg/dL (0.0-0.9); CALCIUM 9.3 mg/dL (8.4-10.2); CARBON DIOXIDE 26 mmol/L (22-30); CHLORIDE 105 mmol/L (98-107); CREATININE, serum 0.94 (0.52-1.25); GLUCOSE 221 mg/dL (74-106); POTASSIUM 4.1 mmol/L (3.4-5.0); SODIUM 141 mmol/L (137-145); TOTAL PROTEIN 7.7 gm/dL (6.4-8.2)
[2019-07-27 21:42] LABS: TROPONIN-I < 0.012 ng/mL (0.000-0.035)
[2019-07-27 23:10] VITALS: BP 144/68; PULSE 67; TEMP 98.3
== END 2019-07-27 23:22 | disposition home or self-care (01) ==
LOC: COL.ER 20:51
PROVIDERS: Emergency Medicine
DX: J06.9 Acute upper respiratory infection, unspecified (principal); E11.9 Type 2 diabetes mellitus without complications; J44.9 Chronic obstructive pulmonary disease, unspecified; Z79.51 Long term (current) use of inhaled steroids; Z79.4 Long term (current) use of insulin; Z79.82 Long term (current) use of aspirin
CPT/HCPCS: J7030

== ENCOUNTER 2019-11-11 18:07 | Emergency (ER) | payer MEDICARE, MEDICAID ==
[~2019-11-11] VITALS: Ht 160 cm; Wt 77.3 kg
[~2019-11-11 18:07] MED LIST changes: +KLONOPIN 0.5MG0.5 MG PO; +ZITHROMAX 250M250 MG PO
[2019-11-11 18:58] LABS: BASO % 0.5 % (0.0-2.0); EOS # 0.2 (0.0-0.7); EOS % 1.8 % (0-4.0); GRAN # 5.7 (1.4-6.5); GRAN % 65.4 % (42.2-75.2); HEMOGLOBIN 11.5 g/dl (12.5-16.0); LYMPH % 23.3 % (20.0-51.0); MEAN CELL VOLUME 93 fl (80.0-100.0); MEAN CORPUSCULAR HEMOGLOBIN 29 pg (27.0-31.0); MEAN CORPUSCULAR HGB CONC 31 g/dl (33.0-37.0); MEAN PLATELET VOLUME 9.5 fl (7.4-10.4); MONO # 0.8 (0.1-0.6); MONO % 8.7 % (1.7-9.3); PLATELET COUNT 254 K/mm3 (130-400); RED BLOOD COUNT 3.94 M/mm3 (4.10-5.30); REDCELL DISTRIBUTION WIDTH-CV 12.9 % (11.5-14.5)
[2019-11-11 19:09] LABS: CREATININE, serum 1.02 (0.52-1.25); POTASSIUM 3.7 mmol/L (3.4-5.0)
[2019-11-11 19:15] LABS: HEMATOCRIT 36.7 % (37.0-47.0)
[2019-11-11] MEDS ORDERED: AEROSOL THERAPY1 DEV INH (20:12)
[2019-11-11] MEDS ORDERED: RT ALBUTER2.5 MG/0.5 IH (20:12)
[2019-11-11 20:30] VITALS: BP 137/56; PULSE 79; TEMP 98.2
== END 2019-11-11 20:30 | disposition home or self-care (01) ==
LOC: COL.ER 18:07
PROVIDERS: Emergency Medicine
DX: J44.1 Chronic obstructive pulmonary disease with (acute) exacerbation (principal); J90 Pleural effusion, not elsewhere classified; Z79.51 Long term (current) use of inhaled steroids; Z79.82 Long term (current) use of aspirin; Z79.4 Long term (current) use of insulin
CPT/HCPCS: J8540

== ENCOUNTER 2019-12-18 10:58 | Inpatient (IN) | payer MEDICARE, MEDICAID ==
[~2019-12-18] VITALS: Ht 160 cm; Wt 73.6 kg
[~2019-12-18 10:58] MED LIST changes: +AEROSOL THERAPY1 DEV INH; +RT ALBUTER2.5 MG/0.5 IH
[2019-12-18 12:00] LABS: BASO % 0.4 % (0.0-2.0); EOS % 0.4 % (0-4.0); GRAN # 7.3 (1.4-6.5); GRAN % 79.1 % (42.2-75.2); HEMATOCRIT 38.3 % (37.0-47.0); HEMOGLOBIN 11.8 g/dl (12.5-16.0); LYMPH # 1.2 (1.2-3.4); LYMPH % 13.2 % (20.0-51.0); MEAN CELL VOLUME 92 fl (80.0-100.0); MEAN CORPUSCULAR HEMOGLOBIN 28 pg (27.0-31.0); MEAN CORPUSCULAR HGB CONC 31 g/dl (33.0-37.0); MEAN PLATELET VOLUME 9.7 fl (7.4-10.4); MONO # 0.6 (0.1-0.6); MONO % 6.6 % (1.7-9.3); PLATELET COUNT 343 K/mm3 (130-400); RED BLOOD COUNT 4.15 M/mm3 (4.10-5.30); REDCELL DISTRIBUTION WIDTH-CV 13.2 % (11.5-14.5)
[2019-12-18 12:16] LABS: ALANINE AMINOTRANSFERASE 5 U/L (4-34); ALKALINE PHOSPHATASE 152 U/L (50-136); ANION GAP 11 mmol/L (7-16); AST,SGOT 18 U/L (15-37); BILIRUBIN,TOTAL 0.7 mg/dL (0.0-1.0); BLOOD UREA NITROGEN 21 mg/dL (7-17); CALCIUM 9.5 mg/dL (8.4-10.2); CARBON DIOXIDE 25 mmol/L (22-30); CHLORIDE 100 mmol/L (98-107); CREATININE, serum 1.19 (0.52-1.25); GLUCOSE 209 mg/dL (74-106); POTASSIUM 4.1 mmol/L (3.4-5.0); SODIUM 136 mmol/L (137-145); TOTAL PROTEIN 8.1 gm/dL (6.4-8.2)
[2019-12-18 12:20] LABS: C-REACTIVE PROTEIN 6.5 mg/dL (0.0-0.9)
[2019-12-18 12:27] LABS: TROPONIN-I < 0.012 ng/mL (0.000-0.035)
[2019-12-18 13:27] LABS: COLLECTION METHOD CLEAN CATCH
[2019-12-18 13:43] LABS: MUCOUS Present /lpf; PH 5 (5-8); SQUAMOUS EPITHELIAL 0-2 /hpf; URINE APPEARANCE Cloudy; URINE BACTERIA None Seen /hpf; URINE BILIRUBIN Negative (NEGATIVE); URINE BLOOD 1+ (NEGATIVE); URINE COLOR Amber; URINE GLUCOSE Negative (NEGATIVE); URINE KETONE Trace (NEGATIVE); URINE LEUKOCYTE ESTERASE 3+ (NEGATIVE); URINE NITRATE Negative (NEGATIVE); URINE PROTEIN(semi-quant) 2+ (NEGATIVE); URINE RBC 20-50 /hpf
[2019-12-18 16:00] VITALS: BP 102/48; PULSE 86
[2019-12-18] MEDS ORDERED: TOPROL XL 25MG25 MG PO (16:27)
[2019-12-18] MEDS ORDERED: TOPROL XL 50MG50 MG PO (16:30)
--- NOTE | 2019-12-18 18:29 | NUR ---
Patient has been stable since arriving to the floor. Admission assessment completed. She reported some muscular pain in her neck and requested and ice pack. This was provided to her and pt stated that it helped relieve the pain. Patient is alert and oriented x4. No issues with innapropriate speech or disorientation at this time. Patient is aware to call before getting up, bed alarm is set as a precaution for her hx of dementia despite her being A&Ox4. Continuing to monitor. Call light in reach.
[2019-12-18 19:38] VITALS: BP 113/46; PULSE 66; TEMP 98.1
--- NOTE | 2019-12-18 20:00 | NUR ---
Pt resting in bed at this time. Pt assessment completed and documented. Pt alert and oriented x4. Pt on 4L O2 via nasal cannula. IVF infusing to right forearm per orders. No complaints of pain. Pt denies any other needs at this time. Call light within reach. Will continue to monitor.
[2019-12-18] MEDS ORDERED: PRILOSEC 20MG20 MG PO (20:43)
[2019-12-18 23:42] VITALS: BP 119/83; PULSE 87; TEMP 98.7
[2019-12-19 04:20] VITALS: BP 148/57; PULSE 70; TEMP 98.6
--- NOTE | 2019-12-19 05:30 | NUR ---
Pt awake on and off throughout the night with complaints of right shoulder pain. PRN tylenol given per orders without hardly any relief. PRN norco given per orders in which pt has been asleep in recliner since. IVF infusing per orders to right forearm IV site. INT to left forearm without complications. Pt on 4L O2 via nasal cannula. Pt denies any other needs at this time. Call light within reach. Will continue to monitor.
[2019-12-19 06:54] LABS: BASO % 0.4 % (0.0-2.0); EOS # 0.2 (0.0-0.7); EOS % 2.1 % (0-4.0); GRAN # 5.1 (1.4-6.5); GRAN % 67.8 % (42.2-75.2); HEMOGLOBIN 10.8 g/dl (12.5-16.0); LYMPH # 1.5 (1.2-3.4); LYMPH % 20.4 % (20.0-51.0); MEAN CELL VOLUME 94 fl (80.0-100.0); MEAN CORPUSCULAR HEMOGLOBIN 29 pg (27.0-31.0); MEAN CORPUSCULAR HGB CONC 31 g/dl (33.0-37.0); MEAN PLATELET VOLUME 9.8 fl (7.4-10.4); MONO # 0.7 (0.1-0.6); PLATELET COUNT 301 K/mm3 (130-400); RED BLOOD COUNT 3.74 M/mm3 (4.10-5.30); REDCELL DISTRIBUTION WIDTH-CV 13.2 % (11.5-14.5)
--- NOTE | 2019-12-19 06:57 | NUR ---
Report given to CHAD Shoemaker
[2019-12-19 07:00] LABS: CALCIUM 8.7 mg/dL (8.4-10.2); CREATININE, serum 1.19 (0.52-1.25)
[2019-12-19 07:50] VITALS: BP 144/91; PULSE 63; TEMP 98.2
[2019-12-19 08:06] LABS: INR 1.2 (0.8-3.0); PROTHROMBIN TIME 13.6 SECONDS (9.7-12.8)
[2019-12-19 12:39] VITALS: BP 128/45; PULSE 69; TEMP 98.4
[2019-12-19 13:10] LABS: GLUCOSE,PLEURAL FLUID 138 mg/dL; TOTAL PROTEIN,PLEURAL FLUID 5.7 gm/dL
[2019-12-19 13:34] LABS: PLEURAL FLUID RBC 4000 /mm3 (0-0); PLEURAL FLUID WBC 650 /mm3
[2019-12-19 13:40] LABS: PLEURAL FLUID COLOR YELLOW
[2019-12-19 13:41] LABS: PLEURAL FLUID APPEARANCE CLEAR
--- NOTE | 2019-12-19 14:13 | NUR ---
SW's met with the patient to discuss discharge plan. The patient lives alone in [place]. She states that she does not have any friend/family support in [facility]. She states that the people listed in EMR as her next of kin (Ita Marquez) and person to notify (Nuria Dodge) are not good supports for her anymore. Her son, Sascha Mccord (ph#[phone]), lives in [place]. She reports independence with ADLs and has a cane and walker. She receives home health services for custodial from [facility] and private duty services for housekeeping and transportation from [facility]. KRISTINA contacted and confirmed services from [place] at [facility]. KRISTINA faxed updates to [facility]. The patient's PCP is Dr. Kristi Daugherty and she receives her medications by delivery from [facility]. The patient's advanced directives are in EMR. Her DPOA-HC is her son, Sascha, and she states that this accurate. She states that she has not spoken to him in a couple weeks though. The patient expressed her concerns with not being able to find someone to feed her cat while she is here. KRISTINA attempted to contact management at [facility] to request assistance with this. They are closed due to the holiday. KRISTINA was able to leave a voicemail for the emergency services for the apartment. KRISTINA to inform the patient. PT/OT and a Palliative Care consult has been ordered. KRISTINA to continue to follow.
--- NOTE | 2019-12-19 14:34 | NUR ---
I talked with pt for over 30 minutes trying to determine her goals of care. She reports that living with her cat is her goal. She is not interested in a feeding tube. She wants to have basic medical care but nothing really extreme. She greatly feels the loss of not being supported by her children but does states the some of the staff that comes to her house makes her feel cared for and that means a great deal to her. She is really not sure she is interested in Meals on Wheels as their meals are "heavy and spicy hot" which she does not like. She is not ready for hospice care because she "still wants to live". She relates her being able to eat better to having the thoracentesis and also reports that her pain is better. Pt did report that yesterday she felt like she could not go on like she was but reports now she is feeling so much better--and now they know what was wrong. Her cat is very important to her and gives her strength. She reports that she did know she was loosing weight because her clothes don't fit like they should anymore--they fall off. She feels that she is eating well today and is making a big improvement in her diet now that she can eat. While eating she did not cough, or struggle to swallow. She was eating sherbert. She enjoys talking with her friends. She is quite pleased that she is feeling better but also reports that sometimes one pain goes away and then another pain starts. She feels that her in home care people are either very good or they just don't do much. She talked with transition social worker at length about getting her cat cared for and knowing that they are helping her seemed to be a great relief.
--- NOTE | 2019-12-19 15:09 | NUR ---
SW's updated the patient about leaving a voicemail for the apartment's emergency services. The patient asked about whether [facility] could do it. SW contacted [facility] and they report that they are unable to do it. KRISTINA's then met with the patient to inform. The patient was on the phone. After getting off the phone, she informed SWs that she believes she found someone that can feed her cat tomorrow. SW to continue to follow.
[2019-12-19 16:26] VITALS: BP 135/68; PULSE 72; TEMP 98
--- NOTE | 2019-12-19 19:28 | NUR ---
Pt assessment completed and documented. Pt sitting up in chair at this time eating dinner. Pt alert and oriented x4. States she is feeling much better after the thoracentesis today. Pt denies pain at this time. Pt on 3.5L O2 via nasal cannula. IVF infusing to right forearm IV site without complications. INT to left forearm patent and free of complications. Pt denies any other needs at this time. Chair alarm on. Call light within reach. Will continue to monitor.
[2019-12-19 20:42] VITALS: BP 1009/45; BP 109/45; PULSE 67; TEMP 98.2
[2019-12-20 00:13] VITALS: BP 120/62; PULSE 76; TEMP 97.5
[2019-12-20 03:41] VITALS: BP 112/55; PULSE 70; TEMP 98.1
--- NOTE | 2019-12-20 06:04 | NUR ---
Pt had uneventful shift shift. Pt rested on and off throughout the night in chair. States she is ready to go home to take care of her cat. INT to left and right forearm free of complications. No complaints of pain during the night. Pt denies any other needs at this time. Call light within reach. Will continue to monitor.
[2019-12-20 07:31] LABS: BASO % 0.6 % (0.0-2.0); EOS # 0.2 (0.0-0.7); GRAN # 4.8 (1.4-6.5); GRAN % 70.6 % (42.2-75.2); HEMOGLOBIN 10.9 g/dl (12.5-16.0); LYMPH # 1.2 (1.2-3.4); LYMPH % 17.1 % (20.0-51.0); MEAN CELL VOLUME 94 fl (80.0-100.0); MEAN CORPUSCULAR HEMOGLOBIN 29 pg (27.0-31.0); MEAN CORPUSCULAR HGB CONC 30 g/dl (33.0-37.0); MONO # 0.6 (0.1-0.6); MONO % 8.3 % (1.7-9.3); PLATELET COUNT 310 K/mm3 (130-400); RED BLOOD COUNT 3.81 M/mm3 (4.10-5.30); REDCELL DISTRIBUTION WIDTH-CV 13.2 % (11.5-14.5)
[2019-12-20 07:33] LABS: CALCIUM 8.9 mg/dL (8.4-10.2); CREATININE, serum 1.01 (0.52-1.25); POTASSIUM 4.1 mmol/L (3.4-5.0)
[2019-12-20 07:42] LABS: HEMATOCRIT 35.8 % (37.0-47.0)
[2019-12-20 07:44] VITALS: BP 112/39; PULSE 70; TEMP 98.5
--- NOTE | 2019-12-20 08:30 | NUR ---
PT SITTING IN CHAIR. ASSISTED TO BATHROOM AND BACK. PT NOT ABLE TO WALK WITHOUT HOLDING ONTO FURNITURE. PT'S GAIT NOT STEADY. PT WAS INCONTINENT OF URINE. PT REFUSED MORNING METOPROLOL AND DIALITEZM. PT ADVISED THAT THE DOCTOR DID NOT TELL HER SHE WAS TAKING THESE MEDICAIONS AND SHE WILL NOT TAKE THEM. PT ALSO STATED THAT SHE WAS NOT SUPPOSE TO GET ANYMORE ANTIBOITIC, BECAUSE THE NURSE AT NIGHT TOLD HER SHE WAS FINISHED WITH THEM. NOTIFIED DR. WILLSON AND NO NEW ORDERS GIVEN. PT IN RECLINER WITH CHAIR ALARM ON, AND CALL LIGHT WITHIN REACH.
[2019-12-20] MEDS ORDERED: TOPROL XL 25MG25 MG PO (11:14)
[2019-12-20] MEDS ORDERED: CARDIZEM CD 18180 MG PO (11:15)
[2019-12-20] MEDS ORDERED: OMNICEF 300MG300 MG PO (11:17)
--- NOTE | 2019-12-20 12:17 | NUR ---
PT NOT COOPERATING. PT ADVISED THAT NO ONE TOLD HER THAT SHE WAS SUPPOSE TO GET HEART MEDICATION IN THE MORNING AND SHE WAS NOT GOING TO TAKE IT. ALSO, SHE WANTS TO LEAVE AND TAKE HER OWN MEDICATIONS AT HOME. PT REFUSED TO ALLOW US TO DO A BLOOD GLUCOSE CHECK AND TO GET VITAL SIGNS WELL. PT HAS CALL LIGHT WITHIN REACH.
--- NOTE | 2019-12-20 13:53 | NUR ---
PT GOT UPSET AND REFUSED SOME OF HER MORNING MEDS BECAUSE SHE WAS NOT TOLD FROM HER DOCTOR THAT SHE WAS GETTING METOPROLOL 25MG AND DIALTIZEM 180MG PO IN THE MORNING NOW. PT WOULD NOT TAKE THEM, THEREFORE, THREW THEM IN THE SHARPS CONTAINER. THE PT WAS TOLD WHAT SHE WAS GETTING AND SHE ADVISED THAT THE B12 WAS HER METOPROLOL 50MG THAT SHE TAKES DAILY AND THOUGHT THAT THE 25MG METOPROLOL WAS WRONG AND SHE SHOULD NOT GET THAT ONE AND DID NOT WANT TO OVERDOSE. EXPLAINED EACH MEDICATION TO HER, BUT STILL REFUSED TO TAKE. DR. HAN CAME INTO THE ROOM AND SPOKE WITH AND THIS NURSE ADVISED HIM THAT SHE WOULD NOT TAKE HER METOPROLOL AND DIALTIZEM THIS AM. DR. HAN EXPLAIN THE IMPORTANCE OF HER MEDICATIONS FOR HER HEART AND THAT SOMETIMES THE MEDICATIONS WILL CHANGE. PT STILL HAD A HARD TIME UNDERSTANDING ABOUT WHY HER MEDICATION WAS CHANGED. PT DID TAKE THE METOPROLOL DIRECTED BY DR. HAN. WENT INTO THE PT'S ROOM TO ASSIST HER WITH GOING TO THE BATHROOM AND SHE WANTED TO SPEAK TO THE ADVOCATE AND NOT THE LAST PICKER. TRIED TO CALL THE LAST PICKER AND DID NOT GET A HOLD OF HER RIGHT AWAY. THE PT ADVISED THAT HER ADVOCATE WAS SYDNIE AND SHE WANTED TO SPEAK WITH HER. PT WOULD NOT SAY WHY SHE WANTED TO SPEAK WITH HER. PT WANTED TO LEAVE BECAUSE SHE WAS CONCERNED ABOUT HER CAT AT HOME NOT BEING FEED FOR TWO DAYS. PT LATER ADVISED THAT THE DOCTOR CAME IN AND CALLED HER OLD AND ACTED LIKE SHE DID NOT KNOW WHAT WAS GOING ON AND SHE WAS VERY UPSET WITH HIM. SHE STATED THAT IT WAS NOTHING AGAINST THE STAFF OR THIS NURSE (ME) BUT ONLY THE DOCTOR, BECAUSE HE WAS RUDED TO HER. PT CONTINUED TO REFUSE CARES, WOULD NOT TAKE NOON MEDICATIONS OR ALLOW US TO GET VITAL SIGNS OR BLOOD GLUCOSE. THIS NURSE INFORMED THAT PT WAS LEAVING AMA. BROUGHT IN THE PAPERWORK FOR PT TO SIGN BUT PT REFUSED TO SIGN UNTIL SHE SAW THE LAST PICKER. PT SIGNED AMA PAPER WORK AFTER SHE SPOKE WITH THE LAST PICKER. PT WAS GIVEN A LUNCH TRAY, REMOVED TELEMETRY, AND IVs. PT WAS ALSO GIVEN A TAXIE VOUCHER TO TAKE BACK HOME. PT IN ROOM AT THIS TIME WITH CALL LIGHT WITHIN REACH. ALSO, HOME MEDICATIONS WERE RETURNED TO HER BY PHARMACY.
--- NOTE | 2019-12-20 14:08 | NUR ---
[facility] CONTACTED THE HOSPITAL; ALIX IS HER HOME HEALTH AIDE. SHE STATED THE PATIENT CONTACTED HER TO TALK, BUT WAS UNABLE TO ANSWER THE PHONE. ALIX IS GOING TO CONTACT THE HOSPICE HOUSE TO COORDINATE CARE THE PATIENT HAS ALREADY LEFT AMA.
--- NOTE | 2019-12-20 14:42 | NUR ---
PT CAME BACK UP TO THE NURSES' STATION BECAUSE MIX UP WITH HENOK. PT WAS SPEAKING WITH MARA BONILLA IN REFERENCE TO WHAT WAS GOING ON. PT ADVISED THAT DR. WILLSON STATED THAT SHE WAS CRAZY AND HE WAS GOING TO PUT A TUBE DOWN HER THROAT. PT THOUGHT THAT THIS NURSE WAS THERE FOR THAT CONVERSATION. ADVISED THAT I WAS NOT THERE, BUT THERE FOR THE CONVERSATION WITH DR. HAN. PT THEN STATED THAT THIS NURSE TOLD HER SHE WAS GETTING A 50MG TABLET OF METOPROLOL ALONG WITH A 25MG TABLET OF METOPROLOL AND THAT I DID NOT KNOW WHAT MEDICATIONS I WAS GIVING HER. ADVISED THE PT THAT I WAS THE ONE WHO TOLD HER THAT THE BIG PILL WAS A VIT B12 TABLET AND NOT METOPROLOL 50MG. TRIED TO EXPLAIN HER MEDICATIONS TO HER AND PT REFUSED TO LISTEN AT THAT TIME AND ALSO NOW. PT TRIED TO SWITCH IT AROUND THAT SHE WAS THE ONE WHO TOLD ME IT WAS V12. PT NOT WANTING TO LISTEN TO NO ONE. PT STATED ALSO THAT SHE JUST WANTED TO GO HOME AND COME BACK SO THAT SHE CAN TAKE CARE OF HER CAT AT HOME. ALSO, ALL MEDS SCAN ALONG WITH HER ID BAND AND ALL MEDICATIONS GIVEN WAS FROM HER [place]. PT NOT CLEAR ON HER EVENTS AND PT NOT WILLING TO LISTEN.
--- NOTE | 2019-12-20 15:38 | NUR ---
SW received a call from the hospitalist because the patient wanted to go home, however he had recommended that she stay throughout the weekend. SW met with patient at her bedside. Patient discussed concerns with being in the hospital, SW provided support and alternatives to patients concerns, as well as attempted to convience patient to stay. Patient indicated that it was important for her to return home to feed her cat. Patient had indicated that she would think about it and SW could speak with her later. However, Nurse called SW an hour later and indicated that patient was adamate about going home, and she needed transportation. patient did contact this SW by phone and discussed concerns and indicated that she wished to go home after she ate lunch. SW indicated that she would follow upw ith patient, however Sw reminded patient that going home now was not in her best interest. SW did arrange for transport for patient, however patient missed transport time, SW did attempt to rearrange transport time, however drive misunderstood direction, and so he was not available to mushroom picker patient at time arranged. JACE made several calls, and contacted [facility] where patient already receives [facility]. Paige from [facility] called Jace back and arranged for Diane(a volunteer) to pick patient p and take her home. JACE contacted medical and informed them of news. rod cup filler time is 400.
--- NOTE | 2019-12-20 16:00 | NUR ---
PT TAKEN OUT AGAIN, WITH POUAKO KURA KAUPAPA MAORI VIA WHEEL CHAIR. PT HAS ALL PERSONAL BELONGINGS WITH HER.
== END 2019-12-20 16:00 | disposition left against medical advice (07) | DRG 871 ==
LOC: COL.ER 10:58 → MEDICAL 15:19
PROVIDERS: Emergency Medicine; Physician Assistant; ADMIT Internal Medicine
PROC: 0W993ZZ Drainage of Right Pleural Cavity, Percutaneous Approach (ICD-10-PCS; principal; 2019-12-19)
DX: A41.9 Sepsis, unspecified organism (principal); J18.9 Pneumonia, unspecified organism; J96.01 Acute respiratory failure with hypoxia; N39.0 Urinary tract infection, site not specified; J44.0 Chronic obstructive pulmonary disease with (acute) lower respiratory infection; E44.0 Moderate protein-calorie malnutrition; I47.1 Supraventricular tachycardia; J90 Pleural effusion, not elsewhere classified; G20 Parkinson's disease; F02.80 Dementia in other diseases classified elsewhere, unspecified severity, without behavioral disturbance, psychotic disturbance, mood disturbance, and anxiety; I25.10 Atherosclerotic heart disease of native coronary artery without angina pectoris; I10 Essential (primary) hypertension; E11.40 Type 2 diabetes mellitus with diabetic neuropathy, unspecified; I48.0 Paroxysmal atrial fibrillation; F32.9 Major depressive disorder, single episode, unspecified; K21.9 Gastro-esophageal reflux disease without esophagitis; E78.5 Hyperlipidemia, unspecified; Z90.49 Acquired absence of other specified parts of digestive tract; Z79.4 Long term (current) use of insulin
CPT/HCPCS: 99222-AI; 99232-AI; 99239; C9113; J0456; J0696; J1650; J1815; J1885; J2543; J3010; J7030; J7050

== ENCOUNTER 2019-12-22 11:23 | Emergency (ER) | payer MEDICARE, MEDICAID ==
[~2019-12-22] VITALS: Ht 157.5 cm; Wt 73.6 kg
[~2019-12-22 11:23] MED LIST changes: +CARDIZEM CD 18180 MG PO; +PRILOSEC 20MG20 MG PO
[2019-12-22 11:25] VITALS: TEMP 98.6
[2019-12-22 12:13] LABS: BASO % 0.5 % (0.0-2.0); EOS % 0.5 % (0-4.0); GRAN % 66.6 % (42.2-75.2); HEMOGLOBIN 10.6 g/dl (12.5-16.0); LYMPH # 1.7 (1.2-3.4); LYMPH % 22.9 % (20.0-51.0); MEAN CELL VOLUME 92 fl (80.0-100.0); MEAN CORPUSCULAR HEMOGLOBIN 28 pg (27.0-31.0); MEAN CORPUSCULAR HGB CONC 30 g/dl (33.0-37.0); MEAN PLATELET VOLUME 9.9 fl (7.4-10.4); MONO # 0.7 (0.1-0.6); MONO % 9.1 % (1.7-9.3); PLATELET COUNT 283 K/mm3 (130-400); RED BLOOD COUNT 3.78 M/mm3 (4.10-5.30); REDCELL DISTRIBUTION WIDTH-CV 13.4 % (11.5-14.5)
[2019-12-22 12:16] LABS: HEMATOCRIT 34.9 % (37.0-47.0)
[2019-12-22 12:23] LABS: ALBUMIN 3.5 gm/dL (3.5-5.0); BILIRUBIN,TOTAL 0.7 mg/dL (0.0-1.0); CALCIUM 8.9 mg/dL (8.4-10.2); CREATININE, serum 0.96 (0.52-1.25); MAGNESIUM 1.9 mg/dL (1.6-2.3); POTASSIUM 3.8 mmol/L (3.4-5.0); TOTAL PROTEIN 7.3 gm/dL (6.4-8.2)
[2019-12-22 12:25] LABS: COLLECTION METHOD CLEAN CATCH
[2019-12-22 12:25] LABS: INR 1.3 (0.8-3.0); PROTHROMBIN TIME 14.4 SECONDS (9.7-12.8)
[2019-12-22 12:28] LABS: PARTIAL THROMBOPLASTIN TIME 33.5 SECONDS (26.0-37.0)
[2019-12-22 12:32] LABS: TROPONIN-I 0.015 ng/mL (0.000-0.035)
[2019-12-22 12:33] LABS: MUCOUS Present /lpf; PH 5 (5-8); URINE APPEARANCE Hazy; URINE BACTERIA None Seen /hpf; URINE BILIRUBIN Negative (NEGATIVE); URINE BLOOD 1+ (NEGATIVE); URINE COLOR Amber; URINE GLUCOSE 1+ (NEGATIVE); URINE KETONE 1+ (NEGATIVE); URINE LEUKOCYTE ESTERASE 2+ (NEGATIVE); URINE NITRATE Negative (NEGATIVE); URINE PROTEIN(semi-quant) 2+ (NEGATIVE); URINE RBC 20-50 /hpf
--- NOTE | 2019-12-22 12:36 | NUR ---
housekeeper/custodian/laundry worker contacted [facility] and they confirmed that they could see patient today with orders. They currently are providing chcf visits to patient and last saw her on 12/15/2019. [facility] state they can make a home visit today, if patient is discharged from the ED. Worker spoke with Crystal Douglas, litigation manager, and advised that patient was in the ED. Crystal states that she will be making an APS report today and that Dr Daugherty is giving patient a 30 day notice that she ending her primary care for patient. Crystal states that patient will miss appointments and they believe patient requires more help at home and possibly a higher level of care. Crystal states she will place APS report for self neglect and inability, by patient, to secure care and agree to appropriate care services. Worker spoke with patient's nurse and advised of the above information.
[2019-12-22 16:30] VITALS: BP 125/79; PULSE 93
--- NOTE | 2019-12-22 17:07 | NUR ---
KRISTINA made an APS report. Report # [id number]. KRISTINA faxed HHS order and notes to [facility].
== END 2019-12-22 16:45 | disposition home or self-care (01) ==
LOC: COL.ER 11:23
PROVIDERS: Emergency Medicine
DX: I47.1 Supraventricular tachycardia (principal); J90 Pleural effusion, not elsewhere classified; N39.0 Urinary tract infection, site not specified; I48.91 Unspecified atrial fibrillation; I25.10 Atherosclerotic heart disease of native coronary artery without angina pectoris; E11.9 Type 2 diabetes mellitus without complications; I10 Essential (primary) hypertension; J44.9 Chronic obstructive pulmonary disease, unspecified; G20 Parkinson's disease; Z79.4 Long term (current) use of insulin; Z79.82 Long term (current) use of aspirin; Z95.5 Presence of coronary angioplasty implant and graft
CPT/HCPCS: J0696; J1815

== ENCOUNTER 2020-01-09 04:36 | Inpatient (IN) | payer MEDICARE, MEDICAID ==
[~2020-01-09] VITALS: Ht 157.5 cm; Wt 69.1 kg
[2020-01-09 05:18] LABS: BASO # 0.1 (0.0-0.2); BASO % 0.5 % (0.0-2.0); EOS % 0.3 % (0-4.0); GRAN # 8.9 (1.4-6.5); GRAN % 76.3 % (42.2-75.2); HEMOGLOBIN 11.3 g/dl (12.5-16.0); LYMPH # 1.7 (1.2-3.4); LYMPH % 14.2 % (20.0-51.0); MEAN CELL VOLUME 90 fl (80.0-100.0); MEAN CORPUSCULAR HEMOGLOBIN 28 pg (27.0-31.0); MEAN CORPUSCULAR HGB CONC 32 g/dl (33.0-37.0); MEAN PLATELET VOLUME 11.5 fl (7.4-10.4); MONO % 8.3 % (1.7-9.3); PLATELET COUNT 316 K/mm3 (130-400); RED BLOOD COUNT 3.99 M/mm3 (4.10-5.30); REDCELL DISTRIBUTION WIDTH-CV 13.6 % (11.5-14.5)
[2020-01-09 05:19] LABS: HEMATOCRIT 35.8 % (37.0-47.0)
[2020-01-09 05:53] LABS: INR 1.3 (0.8-3.0); PROTHROMBIN TIME 14.4 SECONDS (9.7-12.8)
[2020-01-09 05:54] LABS: BILIRUBIN,TOTAL 1.1 mg/dL (0.0-1.0); CALCIUM 9.2 mg/dL (8.4-10.2); CREATININE, serum 1.23 (0.52-1.25); POTASSIUM 4.7 mmol/L (3.4-5.0); TOTAL PROTEIN 8.4 gm/dL (6.4-8.2)
[2020-01-09 05:54] LABS: COLLECTION METHOD CATHETER
[2020-01-09 05:55] LABS: PARTIAL THROMBOPLASTIN TIME 31.6 SECONDS (26.0-37.0)
[2020-01-09 06:01] LABS: BUDDING YEAST Present /hpf; MUCOUS Present /lpf; PH 5 (5-8); SQUAMOUS EPITHELIAL 0-2 /hpf; URINE APPEARANCE Cloudy; URINE BACTERIA None Seen /hpf; URINE BILIRUBIN Negative (NEGATIVE); URINE BLOOD 1+ (NEGATIVE); URINE COLOR Yellow; URINE GLUCOSE 3+ (NEGATIVE); URINE KETONE 1+ (NEGATIVE); URINE LEUKOCYTE ESTERASE 2+ (NEGATIVE); URINE NITRATE Negative (NEGATIVE); URINE PROTEIN(semi-quant) 2+ (NEGATIVE); URINE UROBILINOGEN >=4.0 mg/dL (NEGATIVE)
[2020-01-09 06:06] LABS: TROPONIN-I 0.049 ng/mL (0.000-0.035)
--- NOTE | 2020-01-09 13:40 | NUR ---
arrived on unit per stretcher, assisted off stretcher with 2 assist and took 2 steps to bed, is requesting help with moving feet into bed and has many requests, informed her I would be back shortly, call light and phone in place
--- NOTE | 2020-01-09 15:00 | NUR ---
admission assessment completed, see intervention for further info,
[2020-01-09 15:04] VITALS: BP 98/51; PULSE 79; TEMP 98.2
--- NOTE | 2020-01-09 15:30 | NUR ---
hep xa result is within goal ranch, rate stays the same
[2020-01-09 15:35] VITALS: BP 121/44; PULSE 75; TEMP 98.4
--- NOTE | 2020-01-09 15:56 | NUR ---
spoke with Dr Huerta regarding patient's admission, blood sugar 361
--- NOTE | 2020-01-09 16:15 | NUR ---
blood sugar 361 and regular insulin 10 units IV given, assisted to sitting up on side of bed,
--- NOTE | 2020-01-09 16:40 | NUR ---
troponin result called to Dr Huerta
--- NOTE | 2020-01-09 18:00 | NUR ---
Dr Huerta in to see patient
--- NOTE | 2020-01-09 18:17 | NUR ---
Dr Jackson notified of consult, will see in the am
--- NOTE | 2020-01-09 18:56 | NUR ---
bedside shift report given to CHAD Waterman
--- NOTE | 2020-01-09 19:05 | NUR ---
Received report from Nicky. Seen patient awake, sitting on bed. She's still eating her dinner. With IV on left forearm infusing heparin at 8.5ml/hr, with INT on right AC. Denies pain. Bed alarm on.
--- NOTE | 2020-01-09 19:34 | NUR ---
This nurse called Tari VERDE, regarding troponin result. She ordered another draw for Troponin at 2100H and at 0500H.
[2020-01-09 19:47] VITALS: BP 98/35; PULSE 82; TEMP 98.5
--- NOTE | 2020-01-09 21:45 | NUR ---
Updated Tari that patient's blood sugar is 268mg/dl. HepaXa result came back. Double check change of rate with charge nurse Sandra. New rate for heparin drip 10ml/hr.
[2020-01-09 23:17] VITALS: BP 119/58; PULSE 72; TEMP 98.5
[2020-01-10 04:02] VITALS: BP 99/48; PULSE 81; TEMP 98
--- NOTE | 2020-01-10 05:21 | NUR ---
EKG done. Tried calling Dr. Andrade twice to relay result but no answer.
--- NOTE | 2020-01-10 07:10 | NUR ---
Patient sleep while sitting in the bed. She's just complaining of frequent blood works but explained to her that it was her hepaxa and troponin. Endorsed to Tricia.
[2020-01-10 07:25] LABS: BASO # 0.1 (0.0-0.2); BASO % 0.7 % (0.0-2.0); EOS # 0.2 (0.0-0.7); EOS % 1.4 % (0-4.0); GRAN # 8.1 (1.4-6.5); GRAN % 73.6 % (42.2-75.2); HEMOGLOBIN 10.8 g/dl (12.5-16.0); LYMPH # 1.6 (1.2-3.4); LYMPH % 14.5 % (20.0-51.0); MEAN CELL VOLUME 89 fl (80.0-100.0); MEAN CORPUSCULAR HEMOGLOBIN 28 pg (27.0-31.0); MEAN CORPUSCULAR HGB CONC 32 g/dl (33.0-37.0); MEAN PLATELET VOLUME 11.2 fl (7.4-10.4); MONO % 9.4 % (1.7-9.3); PLATELET COUNT 391 K/mm3 (130-400); RED BLOOD COUNT 3.82 M/mm3 (4.10-5.30); REDCELL DISTRIBUTION WIDTH-CV 13.5 % (11.5-14.5)
[2020-01-10 07:26] LABS: HEMATOCRIT 33.8 % (37.0-47.0)
[2020-01-10 07:28] LABS: CALCIUM 9.2 mg/dL (8.4-10.2); CREATININE, serum 1.16 (0.52-1.25); MAGNESIUM 2.1 mg/dL (1.6-2.3); POTASSIUM 4.2 mmol/L (3.4-5.0)
[2020-01-10 07:43] LABS: TROPONIN-I 0.093 ng/mL (0.000-0.035)
[2020-01-10 08:17] VITALS: BP 103/40; PULSE 79; TEMP 98.6
--- NOTE | 2020-01-10 10:36 | NUR ---
Goal hepxa 0.31 this am. ordered for recheck tomorrow am.
[2020-01-10 12:23] VITALS: BP 111/55; PULSE 78; TEMP 97.3
--- NOTE | 2020-01-10 12:23 | NUR ---
Plan: Patient plan is unknown, patient may need SNF. Assessment: SW's Met with patient in room. Patient reports that she does not have much support. Patient gave a friend in [facility] as emr contact. DPOA from [place] is son Sascha in [place] listed on DPOA ppw. Patient reports that she has transport Nuria . Patient reports that she uses a walker, cane, and rolator for mobility. Patient denies using oxygen at home and has only needed it in hospital. Patient reports that she has [facility] home health care that comes in twice a week. Patient reports PCP as new and unknown, prior pc-Dr. Daugherty. Patient obtains medications from [facility] in [facility]. Action: Will continue to follow care of patient to further assist in DC plan.
--- NOTE | 2020-01-10 12:30 | NUR ---
Chaplain cruz and offered support with patient.
--- NOTE | 2020-01-10 13:34 | NUR ---
Dr paniagua discussed Thoracentesis procedure with patient. Patient said she needs time to think and talk to relatives about it. Haparin drip will be restarted at this time.
[2020-01-10 17:25] VITALS: BP 105/53; PULSE 80; TEMP 99
[2020-01-10 20:59] VITALS: BP 101/49; PULSE 67; TEMP 99.3
--- NOTE | 2020-01-11 01:15 | NUR ---
Patient suddenly woke up saying she feels dizzy. Came inside her room and verbalizes she's thinking about her procedure in the morning and she's scared of the thoracentesis. She's having some anxiety. Vital signs were checked and Clonazepam was given. Provided with warm blanket to make her comfortable.
[2020-01-11 01:18] VITALS: BP 112/48; PULSE 74; TEMP 98.1
[2020-01-11 05:13] VITALS: BP 118/47; PULSE 75; TEMP 98.2
--- NOTE | 2020-01-11 06:22 | NUR ---
Patient had her EKG this morning and states that she feels scared again. She's thinking about her thoracentesis again. Let patient voice out what she felt and thinking. She calm down after few minutes.
[2020-01-11 08:47] VITALS: BP 113/36; PULSE 69; TEMP 98.1
--- NOTE | 2020-01-11 10:50 | NUR ---
Christina Jackson and Sarah here to see patient.
[2020-01-11 12:28] VITALS: BP 116/53; PULSE 76; TEMP 98.5
--- NOTE | 2020-01-11 12:31 | NUR ---
Patient alert and oriented, answers appropriately. See assessment. Lungs decreased in bases, clear in upper lobes. SOA at rest. Requires oxygen at 4l/nc. No use of accessory muscles noted for breathing, color pink. Heart tones strong and even, pulses palpable. Patient upset with being in hospital, request to discharge to home. Plan of care reviewed with patient. No other c/o at this time.
[2020-01-11 14:46] LABS: BASO # 0.1 (0.0-0.2); BASO % 0.8 % (0.0-2.0); EOS # 0.1 (0.0-0.7); GRAN # 6.4 (1.4-6.5); GRAN % 70.6 % (42.2-75.2); HEMOGLOBIN 10.1 g/dl (12.5-16.0); LYMPH # 1.6 (1.2-3.4); LYMPH % 17.4 % (20.0-51.0); MEAN CELL VOLUME 90 fl (80.0-100.0); MEAN CORPUSCULAR HEMOGLOBIN 29 pg (27.0-31.0); MEAN CORPUSCULAR HGB CONC 32 g/dl (33.0-37.0); MEAN PLATELET VOLUME 11.2 fl (7.4-10.4); MONO # 0.9 (0.1-0.6); PLATELET COUNT 325 K/mm3 (130-400); RED BLOOD COUNT 3.52 M/mm3 (4.10-5.30); REDCELL DISTRIBUTION WIDTH-CV 13.5 % (11.5-14.5)
[2020-01-11 14:51] LABS: INR 1.3 (0.8-3.0); PROTHROMBIN TIME 14.7 SECONDS (9.7-12.8)
[2020-01-11 14:52] LABS: HEMATOCRIT 31.7 % (37.0-47.0)
[2020-01-11 14:54] LABS: PARTIAL THROMBOPLASTIN TIME 40.3 SECONDS (26.0-37.0)
[2020-01-11 14:56] LABS: CALCIUM 8.8 mg/dL (8.4-10.2); CREATININE, serum 1.26 (0.52-1.25); POTASSIUM 3.6 mmol/L (3.4-5.0)
[2020-01-11 16:52] VITALS: BP 115/42; PULSE 70; TEMP 97.9
[2020-01-11 20:41] VITALS: BP 105/38; PULSE 68; TEMP 98.2
--- NOTE | 2020-01-11 21:20 | NUR ---
Pt assessment completed, charted, alert, oriented, NC 2lit. Meds provided as per AUG. I/V flushed without complications. Helped settled down on bed, slept with her legs down on bed for while night. Call light on reach. No further needs at this time.
[2020-01-12] VITALS (11 sets, daily range): BP systolic 107–138; BP diastolic 35–77; PULSE 60–78; TEMP 97.8–98.8
--- NOTE | 2020-01-12 07:43 | NUR ---
Pt had an uneventful night, slept on and off through out the night. Morning meds provided as per AUG. Handover given to the day shift nurse.
--- NOTE | 2020-01-12 08:40 | NUR ---
Patient is in a notable amount of pain since undergoing the thoracentesis. She is unhappy with the pain associated with the procedure at this time. An ice pack has been provided and placed at the site o her back. most of the pain is in her chest at this time. Vitals are at her baseline at this time, tachycardia has resolved. Currently rated at a 10/10 but states "I do not want morphine that is for people". I will look for other PRN pain medication at this time. Continuing to monitor vitals per protocol.
--- NOTE | 2020-01-12 08:50 | NUR ---
Assessment complete. Patient is more talkative now since thoracentesis procedure. Reports pain and soreness at this time but did not want pain medication. She is currently sitting up at the side of the bed leaning over the bedside table as this is where she feels most comfortable. IV site is CD&I, flushed well. No other needs at this time. Continuing to monitor closely.
[2020-01-12 09:19] LABS: PLEURAL FLUID RBC 3000 /mm3 (0-0); PLEURAL FLUID WBC 886 /mm3
[2020-01-12 09:51] LABS: GLUCOSE,PLEURAL FLUID 230 mg/dL; TOTAL PROTEIN,PLEURAL FLUID 5.2 gm/dL
[2020-01-12 11:26] LABS: PLEURAL FLUID APPEARANCE CLEAR; PLEURAL FLUID COLOR YELLOW
--- NOTE | 2020-01-12 12:33 | NUR ---
Patient has remained stable since right sided thoracentsis this morning. Vitals are stable. She said her pain has improved and she has moved from the side of the bed into the bed comfortably. No other needs were expressed. Call light is in reach. Fall precautions are in place.
--- NOTE | 2020-01-12 16:15 | NUR ---
Social Work collaborated with Hospitalist to order PT/OT. SW reviewed PT note which recommends SNF. KRISTINA followed up with patient who is adamant that she is returning home at discharge. Patient states she has been to [facility] before and had a bad experience. SW offered other options but patient declined. Patient has [facility]. KRISTINA contacted Tracy at [facility] who advised patient has been doing okay at home with her current services. Tracy reports patient's cat is very important to her, which is likely part of the reason she wants to go home. Tracy advised they would be willing to continue services with patient. KRISTINA faxed updates and will continue to follow.
--- NOTE | 2020-01-12 16:23 | NUR ---
Patient has had no complaints of apin since recieving morphine this morning for the pain associated with her thoracentesis. Has been taking PO medications well cut small and with pudding. No other needs were expressed. Call light is in reach. Fall precautions in place.
--- NOTE | 2020-01-12 22:30 | NUR ---
Pt assessment completed, charted, alert, oriented, NC 3 lit. Meds provided as per AUG, tolerated well. I/V line flushing without complications. Settled on her bed, call light on reach. No further needs at this time.
[2020-01-13 05:00] VITALS: BP 130/67; PULSE 78; TEMP 98.6
[2020-01-13 07:51] VITALS: BP 106/41; PULSE 71; TEMP 98.4
--- NOTE | 2020-01-13 07:53 | NUR ---
Pt complained of nausea and pain at night, meds provided as per AUG. Handover given to CHAD Shoemaker.
--- NOTE | 2020-01-13 08:46 | NUR ---
Assessment complete. Patient sitting up at the side of the bed with breakfast at this time. No complaints of pain or discomfort at this time. Right thora site from yesterday looks good. IV site is CD&I, flushed well. Meds were given as ordered. PAtient seems to be in better spirits than yesterday. No other need were expressed at this time. Fall precautions in place. Bed alarm is set. Call light is in reach.
[2020-01-13 11:35] VITALS: BP 112/46; PULSE 70; TEMP 97.8
[2020-01-13 15:50] VITALS: BP 107/46; PULSE 72; TEMP 97.3
--- NOTE | 2020-01-13 17:56 | NUR ---
Patient has had a good day. Denied pain for most of the day. Requested pain medication a little bit ago, PRN tramadol was provided for this. Patient took a small nap bust states that people keep bothering her. Understands there are nodules in her lungs but is curious what they are. I informed her the the physicians would speak to her about this. No other needs expressed. Patient is now sitting up in recliner comfortable for breakfast. Call light is in reach.
[2020-01-13 19:11] VITALS: BP 107/43; PULSE 65; TEMP 98.8
--- NOTE | 2020-01-13 19:45 | NUR ---
Received report from Sahara. Seen patient eating her dinner in the recliner. Denies pain. Assesment done. With INT on right hand flushes well. RT informed me that her SPO2 is at 96% on O2 3lpm and she decreased it to 2lpm to see if patient can tolerate it.
--- NOTE | 2020-01-13 22:10 | NUR ---
Patient states she has pain all over with pain score of 7/10. Tylenol PRN given.
[2020-01-13 23:05] VITALS: BP 129/44; PULSE 69; TEMP 98.5
[2020-01-14 04:07] VITALS: BP 126/41; PULSE 61; TEMP 97.9
--- NOTE | 2020-01-14 05:01 | NUR ---
Assisted patient to the bathroom. Changed dressing on her buttocks. Provided bath wipes. Gown and bed linens were changed. Patient states pain is going down.
--- NOTE | 2020-01-14 05:41 | NUR ---
Patient refuses to have her blood drawn. She said she already had a lot of needle sticks and refuses to have one again despite of explanation given to her.
[2020-01-14 07:38] VITALS: BP 104/56; PULSE 73; TEMP 97.3
--- NOTE | 2020-01-14 10:39 | NUR ---
Pt has refused most treatments today aside from recieving her medications, she does not want anything else done to her. She did state that she has daily home health, and wants to return home to her cat. She states she feels much better today and that her heart feels fine. This RN did explain to her that she is going to get home and feel worse as the fluid builds back up and is unable to breathe as well, and she said she understands and Dr. Jackson has already discussed outpatient Thoracentesis with her. Palliative care has also been a consultation for this patient. No further concerns at this time.
[2020-01-14 11:48] VITALS: BP 127/62; PULSE 73; TEMP 98
--- NOTE | 2020-01-14 12:21 | NUR ---
PATIENT DOES NOT REQUIRE OXYGEN DURING AMBULATION, 93% DURING 4 MIN WALK. BACK ON 1 LPM REQUESTED BY PATIENT.
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
--- NOTE | 2020-01-14 14:17 | NUR ---
Pt remains teary eyed regarding diagnosis explaination by Hospitalist. Pt states "I want to go home and toss things because I have nothing more to live for, the doctor told me I'm ". This RN discussed the current plan with the patient who said she wants to live, but doesn't feel like she'll be able to go to sleep because she will and won't see her "Baby" (cat) anymore. Discussed with with Provider who ordered a Psych consult.
--- NOTE | 2020-01-14 14:26 | NUR ---
SW contacted the [facility] and a local [place] regarding their pet policy. Both facilites only allow pets to visit and NOT stay with the patient.
--- NOTE | 2020-01-14 14:52 | NUR ---
Apartment Leasing Specialist contacted Lashae tying machine operator lumber with [facility] regarding the patient. Lashae reports the patient will see a new PCP at of January [address] [facility]. KRISTINA contacted Kesha at [place] and she stated Dr. Carpenter will be the patient's new PCP. The patient's initial appointment is on January 19 at 8:00AM. Kesha states they do not have a clinical case manager or social services coordinator at their office. KRISTINA to fax updates to Kesha. Will continue to follow.
[2020-01-14 15:41] VITALS: BP 109/33; BP 113/43; PULSE 61; TEMP 98.5
--- NOTE | 2020-01-14 19:10 | NUR ---
Received report from Anastasiia. Seen patient eating her dinner in the recliner. She mentioned that she wanted to go home tomorrow. She reminded me of the medicine (Remeron), to give it to her tonight and informed her that she will have that one. Denies pain.
[2020-01-14 19:47] VITALS: BP 133/45; PULSE 67; TEMP 99.2
--- NOTE | 2020-01-14 21:28 | NUR ---
ICU Tele nurse called to say patient had episodes of AFIB RVR. Currently patient is asleep in the recliner. Went inside to check on her and give some night medicines. No complains made. Update Rose BENTON via phone call about the AFIB RVR episodes and said that she will take a look at it.
--- NOTE | 2020-01-14 22:42 | NUR ---
Rose ROONEY, went up to take a look at the patient and tele monitor. Currently patient is asleep and asymptomatic. Patient still running tachy and will go back to normal sinus afterwards.
[2020-01-14 23:04] VITALS: BP 119/64; PULSE 83; TEMP 98.2
[2020-01-15] VITALS (362 sets, daily range): BP systolic 101–114; BP diastolic 51–75; PULSE 70–126; TEMP 97.9–99; O2SAT 77–100
--- NOTE | 2020-01-15 02:24 | NUR ---
Patient still on AFIB RVR, heart rate would be at 130's then back to normal sinus and back to tachycardia again. EKG done. Heart rate at the time of EKG is at 133bpm. This nurse called Dr. Valderrama regarding AFIB RVR episodes and he said to bring patient down to ICU for Cardizem drip.
--- NOTE | 2020-01-15 02:30 | NUR ---
This nurse informed patient that she will stay in ICU for cardizem drip as she's having AFIB RVR. Patient verbalizes understanding. Will give report to ICU nurse.
--- NOTE | 2020-01-15 03:00 | NUR ---
Endorsement given to Amy. Vital signs taken before heading to ICU. Patient will be transferred via wheeelchair.
--- NOTE | 2020-01-15 03:01 | NUR ---
Report received from CHAD Wright.
--- NOTE | 2020-01-15 03:11 | NUR ---
Arrived to the unit via wheelchair; assisted to icu bed via stand by assist. Patient alert and oriented, however speech is slow and affect is flat. Discussed the reason for transfer to ICU and will start Cardizem IV. Patient's history lists Cardizem and an allergy. Patient was on cardizem drip when initially admittted with no adverse effects. Hospitalist was called to clarify this order and hospitalst ordered go ahead with Cardizem drip.
--- NOTE | 2020-01-15 09:49 | NUR ---
Initial visit; Patient thanked It Consultant for stopping and offering prayer and God's blessings this morning.
[2020-01-15] MEDS ORDERED: AMOXICILLIN/CLA1 TA1 PO (14:04)
[2020-01-15] MEDS ORDERED: ELIQUIS 5MG PO (14:04)
[2020-01-15] MEDS ORDERED: CARDIZEM CD 18180 MG PO (14:05)
[2020-01-15] MEDS ORDERED: BETAPACE 80MG80 MG PO (14:05)
[2020-01-15] MEDS ORDERED: LASIX 20MG TABL20 MG PO (14:06)
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
== END 2020-01-15 16:28 | disposition home or self-care (01) | DRG 308 ==
LOC: COL.ER 04:36 → IMCU 08:16 → MEDICAL 08:16 → COL.ER 08:16 → IMCU 10:58 → MEDICAL 14:00 → ICU 01-15 03:02
PROVIDERS: Emergency Medicine; Internal Medicine Pulmonary Disease; ADMIT Student in an Organized Health Care Education/Training Program
PROC: 0W993ZZ Drainage of Right Pleural Cavity, Percutaneous Approach (ICD-10-PCS; principal; 2020-01-12)
DX: I48.91 Unspecified atrial fibrillation (principal); J96.01 Acute respiratory failure with hypoxia; J69.0 Pneumonitis due to inhalation of food and vomit; J98.11 Atelectasis; N39.0 Urinary tract infection, site not specified; I24.8 Other forms of acute ischemic heart disease; J90 Pleural effusion, not elsewhere classified; J91.0 Malignant pleural effusion; E11.40 Type 2 diabetes mellitus with diabetic neuropathy, unspecified; J44.9 Chronic obstructive pulmonary disease, unspecified; I47.1 Supraventricular tachycardia; I25.10 Atherosclerotic heart disease of native coronary artery without angina pectoris; E78.5 Hyperlipidemia, unspecified; E66.9 Obesity, unspecified; R13.10 Dysphagia, unspecified; F41.9 Anxiety disorder, unspecified; I10 Essential (primary) hypertension; G20 Parkinson's disease; K21.9 Gastro-esophageal reflux disease without esophagitis; F32.9 Major depressive disorder, single episode, unspecified; W18.30XA Fall on same level, unspecified, initial encounter; Y92.009 Unspecified place in unspecified non-institutional (private) residence as the place of occurrence of the external cause; Z79.82 Long term (current) use of aspirin; Z79.84 Long term (current) use of oral hypoglycemic drugs; Z95.5 Presence of coronary angioplasty implant and graft; Z85.3 Personal history of malignant neoplasm of breast; Z90.710 Acquired absence of both cervix and uterus; Z88.6 Allergy status to analgesic agent; Z88.7 Allergy status to serum and vaccine
CPT/HCPCS: 99223-AI; 99232-AI; 99233-AI; 99239; J1644; J1650; J1815; J1940; J2270; J2405; J2543; J3370; J7030; J7050

== ENCOUNTER 2020-01-25 11:28 | Inpatient (IN) | payer MEDICARE, MEDICAID ==
[2020-01-25] VITALS (423 sets, daily range): BP systolic 101–114; BP diastolic 50–86; PULSE 105–114; TEMP 97–97.9; O2SAT 78–100
[~2020-01-25] VITALS: Wt 71.0 kg
[~2020-01-25 11:28] MED LIST changes: +AMOXICILLIN/CLA1 TA1 PO; +BETAPACE 80MG80 MG PO; +ELIQUIS 5MG PO
[2020-01-25 12:18] LABS: BASO % 0.2 % (0.0-2.0); GRAN # 15.3 (1.4-6.5); GRAN % 89.8 % (42.2-75.2); HEMOGLOBIN 11.2 g/dl (12.5-16.0); LYMPH # 0.8 (1.2-3.4); LYMPH % 4.5 % (20.0-51.0); MEAN CELL VOLUME 89 fl (80.0-100.0); MEAN CORPUSCULAR HEMOGLOBIN 27 pg (27.0-31.0); MEAN CORPUSCULAR HGB CONC 30 g/dl (33.0-37.0); MEAN PLATELET VOLUME 11.4 fl (7.4-10.4); MONO # 0.8 (0.1-0.6); MONO % 4.9 % (1.7-9.3); PLATELET COUNT 388 K/mm3 (130-400); RED BLOOD COUNT 4.14 M/mm3 (4.10-5.30); REDCELL DISTRIBUTION WIDTH-CV 14.2 % (11.5-14.5)
[2020-01-25 12:19] LABS: HEMATOCRIT 36.9 % (37.0-47.0)
[2020-01-25 12:20] LABS: INR 1.9 (0.8-3.0); PROTHROMBIN TIME 21.2 SECONDS (9.7-12.8)
[2020-01-25 12:26] LABS: ALBUMIN 3.9 gm/dL (3.5-5.0); BILIRUBIN,TOTAL 1.6 mg/dL (0.0-1.0); CALCIUM 9.5 mg/dL (8.4-10.2); CREATININE, serum 1.67 (0.52-1.25); POTASSIUM 5.4 mmol/L (3.4-5.0); TOTAL PROTEIN 8.2 gm/dL (6.4-8.2)
[2020-01-25 12:43] LABS: TROPONIN-I 0.062 ng/mL (0.000-0.035)
--- NOTE | 2020-01-25 16:50 | NUR ---
PT ADMITTED FROM ED WITH DKA,AFIB, AND POSSIBLE SEPSIS. PT IS LETHARGIC AND ONLY ORIENTED TO SELF. PT TRANSFERED TO BED. PT SHOWING AFIB ON MONITOR WITHHR OF 105. DILT DRIP AT 10MG/HR. PTS INSULIN DRIP ON HOLD DUE TO DROP OF GREATER THAN 200. BG CHECKED AND SHOWING 521. DRIP RESTARTED AT PREVIOUS RATE AND AWAITING EVALUATION. PT ALSO HAS NS RUNNING AND VAN. PT HAS LARGE PRESSURE ULCER TO COCCYX. AREA CLEANED, MEPILEX APPLIED AND PT TURNED OFF BOTTOME. PT INCONTINENT OF URINE WELL. PT REORIENTED TO ROOM AND CALL LIGHT MULTIPLE TIMES. BED ALARM ACTIVATED. AWATING FOR FURTHER EVALUATION AND ORDERS.
--- NOTE | 2020-01-25 17:28 | NUR ---
INSULIN DRIP INCREASED 5UNITS/HR PER 'S ORDER BEDSIDE
[2020-01-25 17:58] LABS: CALCIUM 7.7 mg/dL (8.4-10.2); CREATININE, serum 1.13 (0.52-1.25); POTASSIUM 3.6 mmol/L (3.4-5.0)
--- NOTE | 2020-01-25 18:08 | NUR ---
PT AGITATED AND UNCOOPERATEIVE. CALLED AND NOTIFIED. ORDERS RECEIVED FOR IV ATIVAN O.5MG TIMES ONE AND MAY REPEAT TIMES ONE IF NEEDED.
[2020-01-25 18:13] LABS: TROPONIN-I 6 HR POST INITIAL 0.068 ng/mL (0.000-0.034)
[2020-01-25 18:17] LABS: PARTIAL THROMBOPLASTIN TIME 38.5 SECONDS (26.0-37.0)
[2020-01-25 18:21] LABS: PHOSPHOROUS 3.4 mg/dL (2.5-4.5)
[2020-01-25] MEDS ORDERED: NORCO 325 MG-51 TAB PO (18:30)
[2020-01-25] MEDS ORDERED: TYLENOL/CODEINE1 ML PO (18:31)
[2020-01-25] MEDS ORDERED: TYLENOL W/COD1 UDTAB PO ×2 (18:33→18:36)
--- NOTE | 2020-01-25 18:49 | NUR ---
MAXIMUS VERDE NOTIFIED OF LOW URINE OUTPUT. PT HAS HAD 2L NS BOLUS AND ONLY 15OML OUT IN HER LEBLANC. NO NEW ORDERS AT THIS TIME. WILL CONTINUE TO WATCH.
--- NOTE | 2020-01-25 18:50 | NUR ---
CALLED AND NOTIFIED THAT CHEST XRAY WAS COMPLETED POST LINE PLACEMENT. AWATING CALL BACK/
--- NOTE | 2020-01-25 18:59 | NUR ---
RECEIVED CALL FROM THAT HE IS UNABLE TO SEE THE XRAY AT HOME, AND TO HAVE THE SHANK BURNISHER RADIOLOGIST REVIEW. RADIOLOGY DEPARTMENT CALLED AND NOTIFIED AND STATED THEY WILL LET THEM KNOW.
--- NOTE | 2020-01-25 19:03 | NUR ---
AND CALLED FOR CONSULT. DR MCCLURE BEDSIDE FOR LINE PLACEMENT. STATED HE WILL SEE PT.
[2020-01-25 19:55] LABS: ARTERIAL BLD GAS O2 SATURATION 94.2 % (92-100); ARTERIAL BLD GAS TCO2 CT 21.9; ARTERIAL BLOOD GAS BASE EXCESS -3.2 (-2-2); ARTERIAL BLOOD GAS HCO3 20.8 meq/L (22-26); ARTERIAL BLOOD GAS PCO2 33.9 mmHg (35-45); ARTERIAL BLOOD GAS PO2 75.1 mmHg (80-100); ARTERIAL BLOOD GAS pH 7.41 (7.35-7.45)
--- NOTE | 2020-01-25 20:00 | NUR ---
PATIENT IS RESTLESS ARGUMENTIVE, EASILY COMFORTED WITH WARM BLANKET AND POSITIVE FEED BACK
[2020-01-26] VITALS (1028 sets, daily range): BP systolic 93–130; BP diastolic 53–86; PULSE 60–137; TEMP 95.3–98.6; O2SAT 47–100
[2020-01-26 01:36] LABS: BILIRUBIN,TOTAL 0.9 mg/dL (0.0-1.0); CALCIUM 8.5 mg/dL (8.4-10.2); CREATININE, serum 1.06 (0.52-1.25); POTASSIUM 3.8 mmol/L (3.4-5.0); TOTAL PROTEIN 6.9 gm/dL (6.4-8.2)
[2020-01-26 04:00] LABS: CALCIUM 8.5 mg/dL (8.4-10.2); CREATININE, serum 1.05 (0.52-1.25); POTASSIUM 3.6 mmol/L (3.4-5.0); TOTAL PROTEIN 6.8 gm/dL (6.4-8.2)
--- NOTE | 2020-01-26 04:33 | NUR ---
PATIENT STATES WANTING TO GO HOME AND ALSO WANTS TO SEE HER MOM, STAYS IN BED, MAKES NO MOVEMENT TO LEAVE,,
[2020-01-26 06:46] LABS: BASO % 0.1 % (0.0-2.0); EOS % 0.2 % (0-4.0); GRAN # 13.3 (1.4-6.5); GRAN % 83.3 % (42.2-75.2); HEMOGLOBIN 11.2 g/dl (12.5-16.0); LYMPH # 1.4 (1.2-3.4); LYMPH % 8.8 % (20.0-51.0); MEAN CELL VOLUME 87 fl (80.0-100.0); MEAN CORPUSCULAR HEMOGLOBIN 28 pg (27.0-31.0); MEAN CORPUSCULAR HGB CONC 32 g/dl (33.0-37.0); MEAN PLATELET VOLUME 10.7 fl (7.4-10.4); MONO # 1.1 (0.1-0.6); MONO % 6.8 % (1.7-9.3); PLATELET COUNT 374 K/mm3 (130-400); RED BLOOD COUNT 4.08 M/mm3 (4.10-5.30); REDCELL DISTRIBUTION WIDTH-CV 14.3 % (11.5-14.5)
[2020-01-26 06:53] LABS: HEMATOCRIT 35.6 % (37.0-47.0)
[2020-01-26 07:02] LABS: CALCIUM 8.5 mg/dL (8.4-10.2); CREATININE, serum 1.08 (0.52-1.25); POTASSIUM 4.3 mmol/L (3.4-5.0)
--- NOTE | 2020-01-26 11:59 | NUR ---
The patient continues to have altered mental status. The patient recently discharged from the hospital, 01/14, with home health services for shelter/PT/OT/ST from [facility] and continued in home services from [facility]. KRISTINA contacted and followed up with Lourdes at [facility]. Lourdes reports that they were on the phone 5xs a day with the patient about concerns. Lourdes states that the patient had agreed to hospice and that [facility] was going to pick her up this weekend. Lourdes states that [facility] determined that the patient was not safe for hospice in the home and recommended the hospice house or hospice at a facility. The patient then refused hospice, due to not being able to have her cat at a facility. Lourdes reports that they are helping find a safe home for the cat. KRISTINA faxed updates to [facility]. The patient's advanced directives are in EMR. Her DPOA-HC is the patient's son, Sascha (ph#[phone]). Lourdes reports that she is not aware and does not think the patient filled out or completed a new DPOA-HC prior to being re-admitted. KRISTINA then contacted the patient's son, Sascha. KRISTINA updated Sascha on the patient's status and about hospice. Sascha would like a call from the doctor. Sascha states that he is agreeable with being the patient's DPOA-HC. Sascha reports that the patient has three other children: Stephanie and Tasneem. He states that his other sister is in a home. KRISTINA attempted to contact the patient's granddaughter, Josie (ph#[phone]), and daughter, Stephanie (ph#[phone]). KRISTINA left them voicemails. KRISTINA attempted to contact Francia at [facility]. KRISTINA left a message with the hospital receptionist. A palliative care consult has been ordered. KRISTINA to continue to follow.
--- NOTE | 2020-01-26 13:01 | NUR ---
Francia, at [facility], contacted SW and provided an update. Francia reports that they had received a hospice order on Sunday from the patient's PCP, Dr. Mat Carpenter. She confirms that they would not be able to do hospice in the home for the patient and would recommend the hospice house or hospice in a facility. SW to continue to follow.
--- NOTE | 2020-01-26 13:02 | NUR ---
Initial visit; Palliative Care Nurse with patient and alerted Copy Worker that patient might wish to see a Mechanical System Technician. Copy Worker went to patient's room to inform patient a Mechanical System Technician will be here by 13:30.
--- NOTE | 2020-01-26 14:08 | NUR ---
Met with patient at bedside. Her interactions are very limited. her hands and arms are cool to touch, color is quite pale, auditory gurgles are heard with her breathing at intervals. I told her we were worried about her because her breathing is not doing well. I asked if she would like a bag machine tender called and she responded yes. Father Carlos did come to bedside for annointment of the sick. Pt initially responded to his prayer but then could not continue. Dr Euceda has left several messages for her son, Sascha Mccord but has not gotten a response. I just called Sascha and was able to talk with him. He is in agreement with the DNR/DNI status but states to me "She would want us to keep trying with medications if she has even a 1% chance of surviving" Sascha then said he would call his sister and talk with her. I asked him to call Dr Euceda and he agreed he would do that after talking with his sister.
[2020-01-26 15:41] LABS: COLLECTION METHOD CATHETER
[2020-01-26 15:52] LABS: BUDDING YEAST Present /hpf; PH 5 (5-8); SQUAMOUS EPITHELIAL 0-2 /hpf; URINE APPEARANCE Turbid; URINE BACTERIA Rare /hpf; URINE BILIRUBIN Negative (NEGATIVE); URINE BLOOD 3+ (NEGATIVE); URINE COLOR Amber; URINE GLUCOSE 1+ (NEGATIVE); URINE KETONE Negative (NEGATIVE); URINE LEUKOCYTE ESTERASE 3+ (NEGATIVE); URINE NITRATE Negative (NEGATIVE); URINE PROTEIN(semi-quant) 2+ (NEGATIVE); URINE RBC >50 /hpf
--- NOTE | 2020-01-26 17:30 | NUR ---
Patient has become more alert and is now interacting with staff, calling out, and asking to leave. Reminded patient that she is very ill and needs to stay in the hospital. Patient able to answer to her name but unable to answer other orientation questions. She repeatedly asks if she will be tomorrow. Patient is also requesting to eat but unable to follow commands for swallow eval by staff; will remain NPO at this time. IV infusing well. Patient frequently removed clothing stating she is hot, then will complain she is cold once she has removed gown and bedding. Attempted to redress patient multple times but she refuses and will not allow repositioning as well.
--- NOTE | 2020-01-26 20:32 | NUR ---
PT RESTIHNG IN BED SKIN COLD TO TOUCH, PT STATES SHE IS NOT COLD WHEN BLANKET PLACE ON HER AND THAT SHE WANT TO LEAVE. VSS AT THIS TIME, PT DENIES PAIN. WILL CALL RE IVF AND BG AND AWAIT ORDERS.
--- NOTE | 2020-01-27 03:31 | NUR ---
0002 VBA PROGRAMMER CALLED RN RE;CHANGE IN HR, RN IN ROOM UNABLE TO FIND PULSE, BP OR NOTE RESP. EUSEBIO SCHROEDER AND TRISTEN BREWSTER CALLED TO UPDATE ON PT STATUS. PT NOTED TO BE DNR/DNI AND START OF SHIFT. PT PRONOUNCED AT 0003. 0010 PT SON SVITLANA HAS UPDATED THAT MOTHER PASSED AT 0003, ASKED ABOUT HOME, SHON STATED HE HAD NO CLUE/ NO IDEA AND GAVE NO FURTHER ANSWER. 0011 FRIEND MARILU WAS UPDATED ON PT PASSING. 0025 EUSEBIO SCHROEDER CALLED SON AGAIN WITH HOME SUGGESTIONS WITH NO ANSWER. 0300 HOME; [facility], LEFT UNIT WITH PT BODY.
== END 2020-01-27 03:00 | disposition expired | DRG 871 ==
LOC: COL.ER 11:28 → ICU 13:10
PROVIDERS: Emergency Medicine; Internal Medicine Pulmonary Disease; ADMIT Student in an Organized Health Care Education/Training Program
PROC: 02H633Z Insertion of Infusion Device into Right Atrium, Percutaneous Approach (ICD-10-PCS; principal; 2020-01-25)
DX: A41.9 Sepsis, unspecified organism (principal); E11.10 Type 2 diabetes mellitus with ketoacidosis without coma; I21.A1 Myocardial infarction type 2; N39.0 Urinary tract infection, site not specified; J90 Pleural effusion, not elsewhere classified; R65.20 Severe sepsis without septic shock; J44.9 Chronic obstructive pulmonary disease, unspecified; I25.10 Atherosclerotic heart disease of native coronary artery without angina pectoris; Z66 Do not resuscitate; I08.3 Combined rheumatic disorders of mitral, aortic and tricuspid valves; L89.159 Pressure ulcer of sacral region, unspecified stage; E11.40 Type 2 diabetes mellitus with diabetic neuropathy, unspecified; I10 Essential (primary) hypertension; G20 Parkinson's disease; I48.0 Paroxysmal atrial fibrillation; F32.9 Major depressive disorder, single episode, unspecified; K21.9 Gastro-esophageal reflux disease without esophagitis; E87.5 Hyperkalemia; E78.5 Hyperlipidemia, unspecified; R74.0 Nonspecific elevation of levels of transaminase and lactic acid dehydrogenase [LDH]; Z79.4 Long term (current) use of insulin; Z79.82 Long term (current) use of aspirin; Z88.8 Allergy status to other drugs, medicaments and biological substances; Z88.6 Allergy status to analgesic agent; Z90.710 Acquired absence of both cervix and uterus
CPT/HCPCS: 99223-AI; 99233-AI; 99239; J1160; J1644; J1815; J2060; J2543; J3370; J3480; J7030; J7050